=== PATIENT | female | born 1985 | race Caucasian/White ===

== ENCOUNTER 2022-03-21 16:57 | Emergency (ER) | payer OTHER, SELFPAY ==
[2022-03-21 17:01] VITALS: BP 122/74; PULSE 109; RESP 16; TEMP 37.3; O2SAT 99
--- NOTE | 2022-03-21 17:02 | ED.URI ---
HPI - URI/Sore Throat General Chief Complaint: Upper Respiratory Infection Stated Complaint: cold flu ears Time Seen by Provider: 03/21/22 17:02 Source: patient and RN notes reviewed History of Present Illness HPI Narrative: Patient is a 37-year-old female who presents to urgent care with complaints of persistent cough and sinus pressure. Patient states she had the flu 2 weeks ago and does not seem to cap the symptoms. Patient denies any recent fevers. States she has been using Mucinex, sinus meds and Tylenol. No other acute complaints. No acute distress noted. Patient aware of the plan of care. Some parts of this dictation were generated by voice recognition software and may contain typographical and/or grammatical inaccuracies. Related Data Allergies Allergy/AdvReac Type Severity Reaction Status Date / Time ciprofloxacin Allergy Intermediate Hives / Verified 03/21/22 17:13 Red Face NSAIDS (Non-Steroidal AdvReac Unknown Unknown Verified 03/21/22 17:13 Anti-Inflamma Review of Systems Review of Systems: CONSTITUTIONAL: Denies fever, chills, or sweats. EYES: Denies visual changes, redness, or discharge. ENT: Reports of sinus pressure, postnasal drainage, rhinorrhea and bilateral ear pressure CARDIOVASCULAR: Denies chest pain, palpitations, or edema. RESPIRATORY: reports of cough GASTROINTESTINAL: Denies abdominal pain, nausea, vomiting, or diarrhea. GENITOURINARY: Denies dysuria or hematuria. SKIN: Denies rash or itching. MUSCULOSKELETAL: Denies back pain, joint pain, or myalgia. NEUROLOGIC: Denies headache, numbness, or weakness. All other systems reviewed are negative, except as documented in HPI. PMFSH Comments At the time of my signature, I reviewed and agree with the nursing past medical, surgical, social, and family history. There is no relevant family history pertinent to the patient complaint. Exam Narrative: GENERAL: This is a well-nourished, well-developed patient, in no apparent distress. HEAD: normocephalic, atraumatic. EYES: PERRL. Sclera clear/white. Vision is grossly intact. EARS: External ears normal, auditory canals clear and without drainage, mild bilateral eustachian tube dysfunction.TMs normal without perforation. Hearing grossly intact. NOSE: External nose normal with no obvious nasal discharge, nares without redness, no rhinorrhea. THROAT: Mucous membranes moist, posterior pharynx clear. Moderate postnasal drainage NECK: Neck supple CARDIOVASCULAR: Regular rate and rhythm without murmurs, gallops, or rubs. RESPIRATORY: Dry cough noted on exam.Clear to auscultation. Breath sounds equal bilaterally. No wheezes, rales, or rhonchi. SKIN: warm, intact with no suspicious lesions or rash, good texture and turgor. NEURO: awake, alert, and oriented to person, place and time. There were no obvious focal neurologic abnormalities. EXTREMITIES: No clubbing, cyanosis, or edema. Course Course Level of Care: Express Care Visit Vital Signs Vital signs: Vital Signs Temperature 99.1 F 03/21/22 17:01 Pulse Rate 109 H 03/21/22 17:01 Respiratory Rate 16 03/21/22 17:01 Blood Pressure 122/74 03/21/22 17:01 Pulse Oximetry 99 03/21/22 17:01 Oxygen Delivery Room Air 03/21/22 17:01 Temperature 99.1 F 03/21/22 17:01 Pulse Rate 109 H 03/21/22 17:01 Respiratory Rate 16 03/21/22 17:01 Blood Pressure 122/74 03/21/22 17:01 Pulse Oximetry 99 03/21/22 17:01 Oxygen Delivery Room Air 03/21/22 17:01 reviewed MDM - URI/Sore Throat MDM Narrative Medical decision making narrative: advised patient to use the Tessalon Perles as needed for cough. Use the inhaler as needed. Complete the steroid regimen as prescribed. Would recommend Mucinex in conjunction with Benadryl/ Zyrtec/ Claritin and Flonase nasal spray. Increase fluid intake and rest. Use a humidifier at night. Follow-up with your PCP within 2-5 days or for worsening symptoms or failure to improve. Dis
== END 2022-03-21 17:30 | disposition home or self-care (01) ==
PROVIDERS: Emergency Provider Nurse Practitioner Family; PCP Internal Medicine
DX: R05.9 Cough, unspecified (principal); D69.3 Immune thrombocytopenic purpura
CPT/HCPCS: 99203; G0463

== ENCOUNTER 2022-09-08 15:45 | Emergency (ER) | payer OTHER, SELFPAY ==
[2022-09-08 15:51] VITALS: BP 129/84; PULSE 92; RESP 16; TEMP 36.7; O2SAT 100
[2022-09-08 15:54] VITALS: BP 129/84; PULSE 92; RESP 16; TEMP 36.7; O2SAT 100
--- NOTE | 2022-09-08 16:08 | ED.DENTAL ---
HPI - Dental/Oral General Chief complaint: Dental/Oral Stated complaint: Tooth pain Time Seen by Provider: 09/08/22 16:08 Source: patient and RN notes reviewed History of Present Illness HPI Narrative: Patient is a 37-year-old female who presents to urgent care with complaints of dental pain for the last few days. Patient states that she has been taking Tylenol with minimal relief. States that she did call her dentist this morning and was unable to get in. Patient states it has been a very long time since she has followed up for a regular dental appointment. Patient states she is also having some low back discomfort and urinary urgency. States that she does have a history of kidney stones and is currently on her menstrual cycle. Patient denies any fever, nausea or vomiting. No other acute complaints. No acute distress noted. Patient aware of the plan of care. Some parts of this dictation were generated by voice recognition software and may contain typographical and/or grammatical inaccuracies. Related Data Allergies Allergy/AdvReac Type Severity Reaction Status Date / Time ciprofloxacin Allergy Intermediate Hives / Verified 09/08/22 15:53 Red Face NSAIDS (Non-Steroidal AdvReac Unknown Unknown Verified 09/08/22 15:53 Anti-Inflamma Review of Systems Review of Systems: CONSTITUTIONAL: Denies fever, chills, or sweats. EYES: Denies visual changes, redness, or discharge. ENT: Denies rhinorrhea, congestion, sore throat, or otalgia. Reports of left lower dental pain CARDIOVASCULAR: Denies chest pain, palpitations, or edema. RESPIRATORY: Denies cough or dyspnea. GASTROINTESTINAL: Denies abdominal pain, nausea, vomiting, or diarrhea. GENITOURINARY: Reports of urinary urgency and bilateral flank pain SKIN: Denies rash or itching. MUSCULOSKELETAL: Denies back pain, joint pain, or myalgia. NEUROLOGIC: Denies headache, numbness, or weakness. All other systems reviewed are negative, except as documented in HPI. PMFSH Comments At the time of my signature, I reviewed and agree with the nursing past medical, surgical, social, and family history. There is no relevant family history pertinent to the patient complaint. Exam Narrative: GENERAL: This is a well-nourished, well-developed patient, in no apparent distress. HEAD: normocephalic, atraumatic. EYES: PERRL. Sclera clear/white. Vision is grossly intact. EARS: External ears normal NOSE: External nose normal with no obvious nasal discharge, nares without redness, no rhinorrhea. THROAT: Mucous membranes moist, posterior pharynx clear. NECK: Neck supple, mild left tender submandibular lymphadenopathy DENTAL: Multiple carious lesions throughout. Notable gingivitis. Moderate edema and erythema surrounding left lower molars 19 through 17 CARDIOVASCULAR: Regular rate and rhythm without murmurs, gallops, or rubs. RESPIRATORY: Clear to auscultation. Breath sounds equal bilaterally. No wheezes, rales, or rhonchi. GASTROINTESTINAL: Abdomen soft, non-tender, nondistended. SKIN: warm, intact with no suspicious lesions or rash, good texture and turgor. NEURO: awake, alert, and oriented to person, place and time. There were no obvious focal neurologic abnormalities. EXTREMITIES: No clubbing, cyanosis, or edema. BACK: Mild bilateral CVA tenderness Course Course Level of Care: Express Care Visit Vital Signs Vital signs: Vital Signs Temperature 98.0 F 09/08/22 15:51 Pulse Rate 92 09/08/22 15:51 Respiratory Rate 16 09/08/22 15:51 Blood Pressure 129/84 09/08/22 15:51 Pulse Oximetry 100 09/08/22 15:51 Oxygen Delivery Room Air 09/08/22 15:51 Temperature 98.0 F 09/08/22 15:54 Pulse Rate 92 09/08/22 15:54 Respiratory Rate 16 09/08/22 15:54 Blood Pressure 129/84 09/08/22 15:54 Pulse Oximetry 100 09/08/22 15:54 Oxygen Delivery Room Air 09/08/22 15:54 At the time of my signature, I reviewed and agree with the nursing past medical
== END 2022-09-08 16:28 | disposition home or self-care (01) ==
PROVIDERS: Emergency Provider Nurse Practitioner Family
DX: K02.9 Dental caries, unspecified (principal); K04.7 Periapical abscess without sinus
CPT/HCPCS: 81003; 99213; G0463

== ENCOUNTER 2023-04-29 13:25 | Emergency (ER) | payer OTHER, SELFPAY ==
--- NOTE | ~2023-04-29 | XR_ITS ---
XR abdomen/kub 1V 04/29/2023 14:13 INDICATION: Flank pain TECHNIQUE: KUB COMPARISON: None FINDINGS: Bowel gas pattern is normal. Moderate colonic fecal loading. There is no evidence of free a ir, mass, organomegaly, ascites or obstruction. No abnormal calculi are seen. The bones appear inta ct. IMPRESSION: 1: No acute abdominal abnormality identified. Reviewed, dictated and finalized at location B. CAST ANALYST
[2023-04-29 13:30] VITALS: BP 134/74; PULSE 107; RESP 18; TEMP 37.1; O2SAT 100
--- NOTE | 2023-04-29 13:56 | ED.FEMALEGU ---
HPI - Female Genitourinary General Chief complaint: Urogenital-Female Stated complaint: Poss UTI Time Seen by Provider: 04/29/23 13:57 Source: patient Mode of arrival: ambulatory Limitations: no limitations History of Present Illness HPI Narrative: 38 yo F presents with with R sided flank pain radiating around to R side ABD. Also reports urinary frequency. No dysuria. Hx of kidney stones. Deneis fever, N/V. All systems reviewed and negative except as noted above. Related Data Allergies Allergy/AdvReac Type Severity Reaction Status Date / Time ciprofloxacin Allergy Intermediate Hives / Verified 04/29/23 13:49 Red Face NSAIDS (Non-Steroidal AdvReac Unknown Unknown Verified 04/29/23 13:49 Anti-Inflamma Review of Systems Review of Systems: CONSTITUTIONAL: Denies fever, chills, or sweats. EYES: Denies visual changes, redness, or discharge. ENT: Denies rhinorrhea, congestion, sore throat, or otalgia. CARDIOVASCULAR: Denies chest pain, palpitations, or edema. RESPIRATORY: Denies cough or dyspnea. GASTROINTESTINAL: Denies abdominal pain, nausea, vomiting, or diarrhea. GENITOURINARY: Denies dysuria or hematuria. Reports right flank pain\, urinary frequency. SKIN: Denies rash or itching. MUSCULOSKELETAL: Reports right sided back pain. Denies joint pain, or myalgia. NEUROLOGIC: Denies headache, numbness, or weakness. PSYCHIATRIC: Denies anxiety or depression. All other systems reviewed are negative, except as documented in HPI. PMFSH Comments At time of signature, agree with nursing past medical, surgical, social and family history. There is no relevant family history pertinent to the presenting complaint. Exam Narrative: GENERAL: This is a well-nourished, well-developed patient, in no apparent distress. HEAD: normocephalic, atraumatic. EYES: PERRL. Sclera clear/white. Vision is grossly intact. EARS: External ears normal NOSE: External nose normal NECK: Neck supple, non-tender without lymphadenopathy, masses or thyromegaly. CARDIOVASCULAR: Regular rate and rhythm without murmurs, gallops, or rubs. RESPIRATORY: Clear to auscultation. Breath sounds equal bilaterally. No wheezes, rales, or rhonchi. GASTROINTESTINAL: Abdomen soft, non-tender, nondistended. Bowel sounds are hypo active. No hepato-splenomegaly, or palpable masses. No guarding. SKIN: warm, Dry, intact with no suspicious lesions or rash, good texture and turgor. NEURO: awake, alert, and oriented to person, place and time. There were no obvious focal neurologic abnormalities. EXTREMITIES: No joint tenderness, effusion, or edema noted. BACK: Nontender without deformity. No CVA tenderness. Course Course Level of Care: Express Care Visit Vital Signs Vital signs: Vital Signs Temperature 37.1 C 04/29/23 13:30 Pulse Rate 107 H 04/29/23 13:30 Respiratory Rate 18 04/29/23 13:30 Blood Pressure 134/74 04/29/23 13:30 Pulse Oximetry 100 04/29/23 13:30 Oxygen Delivery Room Air 04/29/23 13:30 Temperature 37.1 C 04/29/23 13:30 Pulse Rate 107 H 04/29/23 13:30 Respiratory Rate 18 04/29/23 13:30 Blood Pressure 134/74 04/29/23 13:30 Pulse Oximetry 100 04/29/23 13:30 Oxygen Delivery Room Air 04/29/23 13:30 Reviewed MDM - Female Genitourinary MDM Narrative Medical decision making narrative: Discussed x-ray results with patient. Explain to patient that KUB is not the best imaging to evaluate for kidney stones. Recommend she follow-up with her primary care physician to request an outpatient CT scan if pain continues. Recommend that she go to the ER for any worsening of symptoms. Prescribed MiraLax to treat constipation. Patient is aware of diagnosis, understands and agrees to treatment plan. Anticipatory guidance given. Patient agrees to follow-up as directed and is aware of reasons to seek care at the emergency department. Portions of this record may have been created with voice recognition software [employer]
== END 2023-04-29 14:35 | disposition home or self-care (01) ==
PROVIDERS: Emergency Provider Nurse Practitioner Family; PCP Internal Medicine
DX: K59.00 Constipation, unspecified (principal)
CPT/HCPCS: 74018; 81003; 99213; G0463

== ENCOUNTER 2025-01-14 13:51 | Emergency (ER) | payer OTHER, SELFPAY ==
--- OUTSIDE RECORDS SUMMARY | 2025-01-14 13:53 | XMS_ITS | Encounter Summary ---
Author Organization [facility] [employer] [facility] Address [address] [place] [address] Phone Care Team Providers Care Out Patient Therapist Name Role Phone Andrea Handy MD Primary Care Provider [phone] Encounter Details Date Type Department Care Team (Late st Contact Info) Description 07/30/2020 Telephone [facility] Medicine Psychiatry [address] [place] [address] Shelley Portillo Social History Tobacco Use Types Packs/Day Years Used Date Smoking Tobacco: Every Day Cigarettes 0.3 26.8 Started: 1998 Smokeless Tobacco: Never Alcohol Use Standard Drinks/Week Comments Not Currently 0 (1 standard drink = 0.6 oz pur e alcohol) Comments Yes Sex and Gender Information Value Date Recorded Sex Assigned at Not on file 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
--- OUTSIDE RECORDS SUMMARY | 2025-01-14 13:53 | XMS_ITS | Clinical Summary ---
Author Organization [facility] Address [address] [place] [address] Care Team Providers Care Cyber Forensic Specialist Name Role Phone Maicol Shin MD Primary Care Provider Source Comments [facility],non-[facility] Affiliates and Associated Physician Practices is amultiple site organization consisting of ambulatory clinics and hospital sitesin [place], [place], [place] and [place]. This disclosure is being madepursuant to the Care Everywhere program and may not contain all information available regarding this patient. 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 Gender Identity Not on file Sexual Orientation Not on file Plan of Treatment Health Maintenance Due Date Last Done Comments LIPID TESTING 1984 MAMMOGRAM 1984 HIV SCREENING 02/27/1999 HEPATITIS C SCREENING 02/23/2002 DTAP/TDAP/TD VACCINES (1 - Tdap) 02/27/2003 HEPATITIS B VACCINE (1 of 3 - 19+ 3-dose series) 02/27/2003 HPV VACCINE (1 - 3-dose SCDM series) 02/27/2011 DEPRESSION SCREENING 04/06/2024 COVID-19 VACCINE ( - 2023-2 5 season) 2024 INFLUENZA VACCINE (#1) 2024 ZOSTER VACCINE (1 of 2) 02/27/2034 HIB VACCINE Aged Out No longer eligi ble based on patient's age to complete this topic MENINGOCOCCAL (Group B) VACC INE SHARED DECISION-MAKING Aged Out No longer eligibl e based on patient's age to complete this topic MENINGOCOCCAL GROUPS A/C/Y/W VACCINE Aged Out No longer eligible b ased on patient's age to complete this topic PNEUMOCOCCAL VACCINE Aged Out No long er eligible based on patient's age to complete this topic Insurance [facility] Care Teams Cyber Forensic Specialist Relationship Specialty Start Date End Date Maicol Shin MD [address] [place] [phone] PCP - General 10/26/17
--- OUTSIDE RECORDS SUMMARY | 2025-01-14 13:53 | XMS_ITS | Clinical Summary ---
Author Organization [facility] Address [address] [place] [phone] Phone Care Team Providers Care Magazine Repairer Name Role Phone Unavailable Primary Care Provider Unavailabl e Allergies No known active allergies Medications acetaminophen-ca ffeine-butalbita l (FIORICET) 325-40-50 mg tablet Take 1 Tablet by mouth. 05/11/2017 Active vit-iron fumarate-fa (MAXIMO ) 28 mg iron- 800 mcg Tablet Take 1 Tablet by mouth daily. Active predniSONE (DELTASONE) 5 mg tabletIndication s:Thrombocytopen ia affecting Take 1 Tablet (5 mg) by mouth daily 4 tabs po qday for 3 days, 2 tabs po for 2 days then 1 tab po qday. 40 Tablet 1 12/03/2017 Active Active Problems Problem Noted Date Diagnosed Date High-risk , third trimester 11/26/2017 Thrombocytopenia affecting 10/08/2017 Tobacco use in , second trimester 10/08 Resolved Problems Problem Noted Date Diagnosed Date Resolved Date Supervision of high risk pre gnancy in second trimester 10/08/2017 11/26/2017 Family History Medical History Relation Name Comments Diabetes Father Healthy Mother Relation Name Status Comments Father Mother Social History Tobacco Use Types Packs/Day Years Used Date Smoking Tobacco: Every Day Cigarettes 0.5 15 Smokeless Tobacco: Never Alcohol Use Standard Drinks/Week Comments No 0 (1 standard drink = 0.6 oz pur e alcohol) Comments No Sex and Gender Information Value Date Recorded Sex Assigned at Not on file Legal Sex Female 1:27 PM CDT Gender Identity Not on file Sexual Orientation Not on file Last Filed Vital Signs Vital Sign Reading Time Taken Comments Blood Pressure 114/74 12/03/2017 9:47 AM CDT Pulse - - Temperature - - Respiratory Rate - - Oxygen Saturation - - Inhaled Oxygen Concentration - - Weight 65.8 kg (145 lb) 12/03/2017 9:47 AM CDT Height - - Body Mass Index - - Plan of Treatment Health Maintenance Due Date Last Done Comments HEPATITIS B VACCINES (1 of 3 - 19+ 3-dose series) 02/05 HPV/Cotest (21-29) 02/27/2005 HPV VACCINES (1 - 3-dose SCDM series) 02/27/2011 CERVICAL CANCER SCREENING 02/27/2014 HPV/Cotest (30-65) 02/27/2014 PAP SMEAR 02/27/2014 BREAST CANCER SCREENING 2024 INFLUENZA VACCINE (#1) 2024 DTAP/TDAP/TD VACCINES (2 - Td or Tdap) 12/25/2026 Insurance [employer] [facility] Address: [address] [address]
--- OUTSIDE RECORDS SUMMARY | 2025-01-14 13:53 | XMS_ITS | Encounter Summary ---
Author Organization [facility] Address [address] [place] [place] [address] Phone Care Team Providers Care Flight Test Supervisor Name Role Phone Andrea Handy MD Primary Care Provider [phone] Encounter Details Date Type Department Care Team (Late st Contact Info) Description 10/09/2022 Telephone [facility] Oncology Services [address] [place] [address] Vera Horton Mary, PAC [address] [place], [place] [id number] Social History Tobacco Use Types Packs/Day Years Used Date Smoking Tobacco: Every Day Cigarettes 0.5 20 Smokeless Tobacco: Never Alcohol Use Standard Drinks/Week Comments Yes 0 (1 standard drink = 0.6 oz pur e alcohol) Sexually Active Control Partners Comments Yes Male Comments No Sex and Gender Information Value Date Recorded Sex Assigned at Not on file Legal Sex Female 3:13 AM CREDIT SUPPORT SPECIALIST Gender Identity Not on file Sexual Orientation Not on file COVID-19 Exposure Response Date Recorded In the last 10 days, have yo u been in contact with someone who was confirmed or suspected to have Coronavirus/COVID-19? No / Unsure 10/06/2022 9:44 AM CDT documented as of this encounter Miscellaneous Notes * Telephone Encounter - Sheba Perez - 10/09/2022 11:58 AM CDT Recent lab results faxed per patient request to [facility] @ [phone]. documented in this encounter Plan of Treatment Upcoming Encounters Date Type Department Care Team (Late st Contact Info) Description 01/26/2025 8:40 AM CDT Office Visit [facility] - Cancer Center Oncology Services [address] [place] [address] Vera Horton Mary, PAC [address] [place] [address] Discharge Disposition: Discharged to home or Selfcare documented as of this encounter Visit Diagnoses Not on filedocumented in this encounter Care Teams Flight Test Supervisor Relationship Specialty Start Date End Date Andrea Handy MD [address] [place] [address] PCP - General Internal Medicine 12/31/16 documented as of this encounter
--- OUTSIDE RECORDS SUMMARY | 2025-01-14 13:53 | XMS_ITS | Clinical Summary ---
Author Organization [facility] Address [address] [place] [address] Phone Care Team Providers Care Before And After School Daycare Worker Name Role Phone Andrea Handy MD Primary Care Provider [phone] Allergies Active Allergy Reactions Criticality Noted Date Comments Cephalexin Hives 02/02/2017 Nsaids Other (see Comments) 09/18/2022 Thrombycytopenia Medications fluticasone (FLONASE) 50 MCG/ACT Suspension 01/29/2017 Active Calcium Carbonate Antacid (TUMS PO) Take by mouth. Active VITAMIN D PO Take by mouth daily. Active diphenhydrAMINE- PSE-APAP (EQ ALLERGY/SINUS HEADACHE PO) Take by mouth. Active Active Problems Problem Noted Date Diagnosed Date Chronic ITP (idiopathic thrombocytopenia) 2018 Thrombocytopenia 10/09/2017 Tobacco abuse 10/09/2017 Resolved Problems Problem Noted Date Diagnosed Date Resolved Date 35 weeks gestation of 12/04/2017 09/19/2019 28 weeks gestation of 10/09/2017 12/04/2017 Family History Medical History Relation Name Comments Hypertension Father Hypertension Mother Clotting Disorder Paternal Aunt Diabetes Paternal Grandfather Heart Attack Paternal Grandfather Relation Name Status Comments Father Mother Paternal Aunt Paternal Grandfather Social History Tobacco Use Types Packs/Day Years Used Date Smoking Tobacco: Every Day Cigarettes 0.5 20 Smokeless Tobacco: Never Tobacco Cessation:Ready to Q uit: Yes; Counseling Given: Yes Alcohol Use Standard Drinks/Week Comments Yes 0 (1 standard drink = 0.6 oz pur e alcohol) Sexually Active Control Partners Comments Yes Male Comments No Sex and Gender Information Value Date Recorded Sex Assigned at Not on file Legal Sex Female 3:13 AM HEATING AND VENTILATION ENGINEER Gender Identity Not on file Sexual Orientation Not on file Last Filed Vital Signs Vital Sign Reading Time Taken Comments Blood Pressure 125/74 05/09/2024 11:34 AM HEATING AND VENTILATION ENGINEER Pulse 95 05/09/2024 11:34 AM HEATING AND VENTILATION ENGINEER Temperature 36.6 C (97.8 F) 05/09/2024 9:02 AM HEATING AND VENTILATION ENGINEER Respiratory Rate 18 05/09/2024 11:34 AM HEATING AND VENTILATION ENGINEER Oxygen Saturation 100% 05/09/2024 11:34 AM HEATING AND VENTILATION ENGINEER Inhaled Oxygen Concentration - - Weight 65.4 kg (144 lb 2.9 oz) 05/09/2024 9:02 A M HEATING AND VENTILATION ENGINEER Height 171.5 cm (5' 7.5) 05/09/2024 9:02 AM HEATING AND VENTILATION ENGINEER Body Mass Index 22.25 05/09/2024 9:02 AM HEATING AND VENTILATION ENGINEER Plan of Treatment Upcoming Encounters Date Type Department Care Team (Late st Contact Info) Description 01/26/2025 8:40 AM CDT Office Visit [facility] On[facility] [address] [place] [address] Vera Horton Mary, PAC [address] [place] [address] Discharge Disposition: Discharged to home or Selfcare Health Maintenance Due Date Last Done Comments Mammogram 1984 Hepatitis B Immunization (1 of 3 - 19+ 3-dose series) 02/27/2003 Pneumococcal Immunization Combined (1 of 2 - PCV) 02/27/2003 Human Papillomavirus (HPV) Immunization (1 - 3-dose SCDM series) 02/27/2011 HPV/Cotest 02/27/2014 Cervical Cancer Screening (CCS) 05/11/2020 Pap Smear 05/11/2020 05/11/2017 Discussion re Starting/Frequency of Mammograms 2024 Influenza Immunization (#1) 2024 SARS-COV-2 Immunization ( - 2023- season) 2024 Respiratory Syncytial Virus (RSV) Immunization (Adult) (1 - 1-dose 75+ series) 02/27/2059 Hepatitis C Virus (HCV) Screening Completed 10/21/2017, 05/11/2017 DTaP/Tdap/Td Immunization Discontinued 2019, 12/25/2016, 10/26/1992 TdaP Immunization Completed 12/06/2019, 12/25/2016 Meningococcal Immunization (ACWY) Aged Out No longer eligible based on patient's age to complete this topic Rotavirus Immunization Aged Out No lo nger eligible based on patient's age to complete this topic Procedures Procedure Name Priority Date/Time Associated Diagnosis Comments HEPATITIS C ANTIBODY Routine 10/21/2017 11:20 AM CDT Thrombocytopenia (HCC) 28 weeks gestation of PATHOLOGY CYTOLOGY OPERATIONS VICE PRESIDENT Routine 05/11/2017 from Last 3 Months or Most Recently Relevant to Health Maintenance Results * HEPATITIS C ANTIBODY (10/21/2017 11:20 AM CDT) hepatitis C antibody 0.06 <1 S/CO 10/22/2017 3:12 PM CDT [facility] Comment: Signal/Cutoff ratio < 0.79 is Nondetected Signal/Cutoff ratio 0.80-0.99 is Grayzone Signal/Cutoff ratio > 0.99 is Detected Supplemental assays are recommended if signal/cutoff ratio is >/=1.00. Signal/cutoff ratio result >/= 5.00 is 97% predictive of positivity for recombinant immunoblot assay (RIBA) and will be reported to the [place] Department of Public Health as required. Blood specimen (specimen) Venipuncture / Unknown 10/21/2017 11:20 AM CDT 10/21/2017 4:26 PM CDT us Nick Ulloa MD CHEMISTRY ORDERABLES Final Resul t [facility] [address] [place] [address], * PATHOLOGY CYTOLOGY OPERATIONS VICE PRESIDENT (05/11/2017) Specimen of unknown material (specimen) us Not On File Provider PATHOLOGY/CYTOLOGY ORDERABL ES Final Result from Last 3 Months or Most Recently Relevant to Health Maintenance Insurance MEDICAID [place] Advance Directives * Full Code (Latest Code Status on File) Date Activated Date Inactivated Comments 11/17/2017 3:46 PM 11/17/2017 9:07 PM CPR-Full Vince atment: FULL ARREST: Attempt Resuscitation/CPR wit intubation and mechanical ventilation. PRE-ARREST: Use entire range of life support measures to stabilize the patient. Care Teams Before And After School Daycare Worker Relationship Specialty Start Date End Date Andrea Handy MD [address] [place] [address] PCP - General Internal Medicine 12/31/16
--- OUTSIDE RECORDS SUMMARY | 2025-01-14 13:54 | XMS_ITS | Encounter Summary ---
Author Organization [facility] Address [address] [place] [address] Care Team Providers Care Night Warehouse Selector Name Role Phone Maicol Shin MD Primary Care Provider [phone] Encounter Details Date Type Department Care Team (Late st Contact Info) Description 11/04/2018 Lab Requisition [facility] [address] [place] [address] Ev Irwin MD [address] [place] [address] Thrombocytopenia Social History Tobacco Use Types Packs/Day Years Used Date Smoking Tobacco: Never Assessed Comments Unknown Sex and Gender Information Value Date Recorded Sex Assigned at Not on file Legal Sex Female 9:51 AM GRAPHIC USER INTERFACE DESIGNER Gender Identity Not on file Sexual Orientation Not on file documented as of this encounter Plan of Treatment Not on file documented as of this encounter Procedures Procedure Name Priority Date/Time Associated Diagnosis Comments FLOW CYTOMETRY BONE MARROW Routine 11/04/2018 9:34 AM CDT Thrombocytopenia documented in this encounter Results * FLOW CYTOMETRY BONE MARROW (11/04/2018 9:34 AM CDT) Case Report Flow Cytometry Case: [id number] Authorizing Provider: Ev Irwin MD Collected: 11/04/2018 09:34 AM Pathologist: Pippa Crisostomo MD Received: 11/04/2018 03:12 PM Specimen: Bone Marrow 11/05/2018 8:50 AM [facility] Final Diagnosis Bone marrow, flow cytometric immunophenotypic analysis: - Paucicellular specimen with no evidence of non-Hodgkin lymphoma or high grade myeloid neoplasm. - See interpretation. 11/05/2018 8:50 AM [facility] at 0850 CDT Flow Cytometry Interpretation The bone marrow specimen is paucicellular and has a viability of 100%. The lymphocyte, dim CD45, monocyte, and granulocyte rea are normal in relative proportion. Within the lymphocyte region, there is no monoclonal B-cell population identified (kappa:lambda ratio is 1.5:1). There is no expanded T-cell population seen. Within the dim CD45 region, there is no increase in blasts (0.3% of all events). A bone marrow aspirate smear prepared from the flow cytometry specimen is reviewed for quality engineering manager purposes. In summary, the bone marrow specimen shows no evidence of a non-Hodgkin lymphoma or high grade myeloid neoplasm. Correlation with additional clinical information and the concurrent bone marrow biopsy specimen ([id number]) is required. KR 11/05/2018 8:50 AM [facility] Flow Cytometry Results Differential Result Comment Flow Cell Count /uL 5700 Total Viability % 100.0 Lymphocytes % 28 Dim CD45 Region % 2 Monocytes % 12 Granulocytes % 57 11/05/2018 8:50 AM [facility] Reason for test Thrombocytopenia 287.5 11/05/2018 8:50 AM [facility] Client Specimen ID # [id number] 11/05/2018 8:50 AM [facility] Number of markers 10 were performed. A Flow CD10 A Flow CD13 A Flow CD20 A Flow CD5 A Flow CD19 A Flow CD33 A Flow CD34 A Flow CD45 A [place]+CD19+ A Lambda+CD19+ 11/05/2018 8:50 AM [facility] Disclaimer Test performed at [facility], [address] [place] [address], [id number]. *The established laboratory minimum viability is 70%. Values below the minimum may result in the failure to find an abnormal population of cells. This test was developed and its performance characteristics determined by the Flow Cytometry Laboratory. It has not been cleared by the [place] Food and Drug Administration (FDA). The FDA has determined that such clearance or approval is not necessary. This test is used for clinical purposes. It should not be regarded as investigational or for research. This laboratory is regulated under the Clinical Laboratory Improvement Amendments of 1998 (CLIA) as a qualified to perform high complexity clinical testing. 11/05/2018 8:50 AM CDT [facility] Embedded Images 8:50 AM CDT [facility] Pathology/Cytolo gy BONE MARROW SPECIMEN / Unknown 11/04/2018 9:34 AM CDT 11/04/2018 3:12 PM CDT Ev Irwin MD LAB - PATHOLOGY/CYTOLOGY ORDERA BLES Final Result Performing Organization Address City/State/[facility] Co de Phone Number [facility] [address] [phone] documented in this encounter Visit Diagnoses Diagnosis Thrombocytopenia Thrombocytopenia, unspecified documented in this encounter Care Teams Night Warehouse Selector Relationship Specialty Start Date End Date Maicol Shin MD [address] [place] [address] PCP - General 10/26/17 documented as of this encounter
--- OUTSIDE RECORDS SUMMARY | 2025-01-14 13:54 | XMS_ITS | Encounter Summary ---
Author Organization [facility] Address [address] [place] [address] Care Team Providers Care Radiology Scheduler Name Role Phone Maicol Shin MD Primary Care Provider [phone] Encounter Details Date Type Department Care Team (Late st Contact Info) Description 11/05/2018 Lab Requisition [facility] Care Pathology Lab [address] [place] [address] Ev Irwin MD [address] [place] [address] Social History Tobacco Use Types Packs/Day Years Used Date Smoking Tobacco: Never Assessed Comments Unknown Sex and Gender Information Value Date Recorded Sex Assigned at Not on file Legal Sex Female 9:51 AM INFORMATION SECURITY ANALYST Gender Identity Not on file Sexual Orientation Not on file documented as of this encounter Plan of Treatment Not on file documented as of this encounter Procedures Procedure Name Priority Date/Time Associated Diagnosis Comments BONE MARROW BIOPSY (STL) Routine 11/04/2018 10:00 AM CDT documented in this encounter Results * BONE MARROW BIOPSY (STL) (11/04/2018 10:00 AM CDT) Case Report Bone Marrow Patholog y Report Case: [id number] Authorizing Provider: Ev Irwin MD Collected: 11/04/2018 10:00 AM Pathologist: Pippa Crisostomo MD Received: 11/05/2018 02:00 PM Specimens: A) - Bone Marrow Core, [id number] B) - Bone Marrow Clot, [id number] C) - Blood Peripheral, [id number] D) - Bone Marrow Aspirate, [id number] 11/05/2018 3:06 PM [facility] Final Diagnosis Bone marrow, aspirate, clot section, and core biopsy: - Normocellular marrow with maturing trilineage hematopoiesis and mild megakaryocytic hyperplasia. - No evidence of lymphoma or high grade myeloid neoplasm. - See microscopic description. Peripheral blood smear: - Thrombocytopenia. - See microscopic description. 11/05/2018 3:06 PM [facility] at 1506 CDT AP Comment In summary, the bone marrow is normocellular for age with maturing trilineage hematopoiesis. Megakaryocytes are slightly increased in number and show focal clustering. This is often observed as a reactive process to peripheral destruction or loss of platelets, such as in ITP. Correlation with clinical, laboratory, and cytogenetic/molecular results is required. KR 11/05/2018 3:06 PM [facility] Peripheral Smear Description CBC Data: WBC - 5.62, Hgb - 12.6, MCV - 88.8, MCHC - 31.7, and Platelets - 88. Manual Differential Count (100 cells): 50% neutrophils, 41% lymphocytes, 6% monocytes, and 3% eosinophils. Leukocyte number: normal. Granulocyte morphology: normal. Lymphocyte morphology: normal. Erythrocyte number: normal. Erythrocyte morphology: normochromic/normocyt ic. Anisopoikilocytosis: not significant. Polychromasia: not significant. Platelet number: decreased. Platelet morphology: normal. 11/05/2018 3:06 PM [facility] Bone Marrow Aspirate The aspirate smears and touch imprint are paucicellular and hemodilute without spicules. A differential count is not performed. Storage iron (by special stain): decreased. Smear is paucicellular, limiting interpretation. Control is appropriately reactive. Sideroblastic iron (by special stain): decreased. 11/05/2018 3:06 PM [facility] Bone Marrow Core Biopsy and Clot Section Description Specimen quality: The decalcified bone marrow core biopsy is adequate for evaluation. Cellularity: Normocellular, estimated at 70%. Trilineage Hematopoiesis: Present. Myeloid to Erythroid ratio: normal. Myeloid maturation and localization: normal. Erythroid maturation and localization: normal. Megakaryocyte number: Mildly increased. Megakaryocyte distribution: small, loose clusters. Lymphoid aggregates: Absent. Core biopsy iron (by special stain): Decreased. Core biopsy reticulin fibrosis (by special stain): No significant fibrosis identified (MF-0). Clot section marrow particles: Single particle. Clot section morphology: similar to core biopsy. Clot section iron (by special stain): Focal. 11/05/2018 3:06 PM [facility] Flow Cytometry Summary Concurrent flow cytometry ([id number]) shows a paucicellular specimen with no evidence of non-Hodgkin lymphoma or high grade myeloid neoplasm. 11/05/2018 3:06 PM [facility] Clinical History 33 year old woman with thrombocytopenia. 11/05/2018 3:06 PM [facility] Materials Received Received are 20 slides and 2 blocks labeled as [id number] along with the outside pathology report. The materials originate from [facility], [address] [place] [address]. All materials are returned to the referring institution, along with a copy of our final report. 11/05/2018 3:06 PM [facility] Disclaimer The performance characteristics of all immunohistochemical and indirect immunofluorescence stains (if any) cited in this report were determined by the Histopathology Laboratory of [facility]. Some of these tests were developed by our own laboratory and have not been cleared or approved by the US Food and Drug Administration. The FDA does not require this test to go through premarket FDA review. These tests are used for clinical purposes. They should not be regarded as investigational or for research. This laboratory is certified under the Clinical Laboratory Improvement Amendments (CLIA) as qualified to perform high complexity clinical laboratory testing. This case has been personally reviewed and interpreted by the attending (teaching) pathologist. The interpretation of this case is performed [facility], [address] [place] [id number]. 11/05/2018 3:06 PM [facility] Embedded Images 11/05/2018 3:06 PM [facility] Pathology/Cytology SPECIMEN FROM BONE MARROW OBTAINED BY ASPIRATION / Unknown 11/04/2018 10:00 AM CDT 11/05/2018 2:00 PM CDT Miscellaneous samples (specimen) BONE MARROW CLOT SPECIMEN / Unknown 11/04/2018 10:00 AM CDT 11/05/2018 2:00 PM CDT Miscellaneous samples (specimen) PERIPHERAL BLOOD / Unknown 11/04/2018 10:00 AM CDT 11/05/2018 2:00 PM CDT Miscellaneous samples (specimen) SPECIMEN FROM BONE MARROW OBTAINED BY ASPIRATION / Unknown 11/04/2018 10:00 AM CDT 11/05/2018 2:00 PM CDT Ev Irwin MD LAB - PATHOLOGY/CYTOLOGY ORDERA BLES Final Result Performing Organization Address [facility] Co de Phone Number [facility] [address] [phone] documented in this encounter Visit Diagnoses Not on filedocumented in this encounter Care Teams Radiology Scheduler Relationship Specialty Start Date End Date Maicol Shin MD [address] [place] [address] PCP - General 10/26/17 documented as of this encounter
--- OUTSIDE RECORDS SUMMARY | 2025-01-14 13:54 | XMS_ITS | Clinical Summary ---
Author Organization [facility] [address] [employer] Address [address] [place] [address] Phone Care Team Providers Care Linoleum Tile Floor Layer Name Role Phone Andrea Handy MD Primary Care Provider Allergies Active Allergy Reactions Criticality Noted Date Comments Cephalexin Hives Medium 02/02/2017 Nsaids (Non-Steroidal Anti-Inflammatory Drug) Other (See comments) Low 09/18/2022 Thrombycytopenia Medications acetaminophen (TYLENOL) 325 mg tabletIndicatio ns:Fever,Pain Take 2 tablets (650 mg total) by mouth every 6 (six) hours as needed for pain 120 tablet 1 1 Active Additional Information Patient not taking.Reported on 12/01/2024 fluticasone propionate (FLONASE) 50 mcg/actuation nasal sprayIndication s:Allergic Rhinitis Administer 2 sprays into each nostril daily 1 Inhaler 1 1 Active medroxyPROGESTE Lyndon (PROVERA) 10 mg tablet Take 1 tablet by mouth 3 times daily for 3 days, then take 1 tablet 2 times daily for 2 days, then take 1 tablet daily for 7 days. 20 tablet 5 Active Additional Information Patient not taking.Reported on 12/01/2024 Active Problems Problem Noted Date Diagnosed Date Smoker 06/24/2019 Overview (07/02/2020): 1/2 ppd to 1/4 ppd in . Cessation reviewed, especially as modifiable risk factor for PTB and IUGR. Previously counseled Resolved Problems Problem Noted Date Diagnosed Date Resolved Date Uterine prolapse 08/20/2020 09/20/2020 care following vaginal delivery 08/11/2020 11/13/2020 Overview (08/13/2020): # ID: Afebrile. No signs/symptoms of infection. #COVID-19: Negative # Heme: Thrombocytopenia: H/o ITP. Plts 109 prior to delivery. S/p s/p prednisone 65 x2 (08/05-08/06) -> dexamethasone 40 mg daily x 4 days. EBL: 150 Calderon, Onegirlheather [] 0 Calderon, Twoboyheather [] 0 mL. No symptoms acute blood loss anemia. # CV/Pulm: Vital signs stable, within normal limits. #Tobacco use: Ordered for nicotine patches # GI/: Tolerating PO. Voiding spontaneously. # Pain: Controlled with above regimen. Added flexeril and oxycodone. Patient declines ibuprofen due to h/o ITP. # Post DVT prophylaxis: The patient has the following MAJOR risk factors none and the following MINOR risk factors age >/= 35 and multiple gestation . enoxaparin 40 mg daily ordered for VTE prophylaxis. # MOC: Desires interval BTL, desires DMPA as a bridge. # MOF: Both formula and # Disposition: Follow up task not sent. Desires discharge home today. Poor growth affecting management of mother in second trimester 06/11/2020 09/20/2020 Overview (07/02/2020): Early onset IUGR of twin 1 diagnosed at 18w2d anatomy scan Previously counseled, patient adamantly declines invasive testing For q3 week growth US. EFW 9% today with normal Dopplers. Today we discussed at length UA Dopplers for prediction of stillbirth. At this time Twin A is not a viable GA or weight therefore I do NOT recommend weekly Dopplers to start. At her next growth in 3 weeks, we reviewed that Twin A may be a viable weight. Thus, fetus would potentially benefit from delivery to avoid an intrauterine demise, which would be reason to start UA Dopplers. However, this would necessitate delivery of Twin B as well - and at that point of 24/25 weeks, would come with risks of extreme prematurity. Options would be to start UA Dopplers to avoid stillbirth with delivery, with risk of very early delivery to Twin B; or, defer Dopplers for another 3 weeks until repeat growth at 27-28 weeks, at which prognosis for Twin B would greatly be improved. Patient demonstrated understanding of these options and will discuss with her family and what her decisions would be. - continue q3 wk growth - UA Doppler to be discussed at next visit - surveillance to start at 28 wks Short interval between pregn ancies affecting in first trimester, antepartum 05/02/2020 09/20/2020 Overview (07/02/2020): Delivered at 33 weeks for PPROM and NRFHS by delivery in December 2019. LMP January 2020, now with twins. Risks of PTB and IUGR previously reviewed. Supervision of high-risk pre gnancy, unspecified trimester 04/25/2020 09/20/2020 Overview (07/02/2020): RTC 3 weeks with repeat growth and UA Doppler of Twin A. Pending viable weight, will make plan regarding whether to initiate weekly Dopplers of Twin A or defer for another 3 weeks to 27-28 weeks, to avoid extreme delivery of normally grown twin. [x] Co-management vs. [] Full [facility] Care; [] Red Team [] Blue Team Referring Provider: Daisy Arshad [phone] [] or Medicare Insurance [x] Dating Criteria: LMP 02/04/20 OMARI 11/10/20 [x] Labs: Rh [O+], Ab [negative], Rubella [immune], HIV [non-reactive], HepBSAg [non-reactive], RPR [non-reactive], GC/CT [negative/negative] [x] Genetic Screening: S/p normal NIPT, declines invasive testnig [x] CBC/Hgb 14.1/43.6/plt 118 [x] UCx: 04/09/20 no growth [x] Pap: 04/09/20 NILM; HPV negative [x] LD ASA (if indicated) starting at 12 weeks: [] PNBHS referral (if indicated) 2nd Tri Labs: [x] Anatomy ultrasound: complete x2 [] CBC/1hr gtt at 24-28wks: [] Flu Shot (Dec-Mar): [] Tdap (27-36wks): 3rd Tri Labs: [] CBC/HIV/RPR: [] GBS: [] COVID testing: Counselling [] MOD: [] Place of delivery: [] MOC: [] Method of feeding: [] Tax Services Manager: [] PP Depression Discussed: Dichorionic diamniotic twin , antepartum 03/26/2020 09/20/2020 Overview (07/02/2020): Previously counseled Plan: [x] specialized anatomy- complete x2, early onset IUGR of Twin1 - Serial growths from 24 weeks, testing from 32 weeks and delivery by 38 weeks- pending growth scans - Mode of delivery to be determined by presentation at delivery, gestational age, sizes and provider experience with breech extraction. Previous delivery a ffecting 12/07/2019 09/20/2020 Overview (07/02/2020): H/o 2 SVDs and then a for NRFHS at 33 weeks with PROM calculator 70% chance of success Previously counseled [] MOD to be discussed pending weights and final position of twins Antepartum multigravida of a dvanced maternal age 0306/24/2019 09/20/2020 Overview (07/02/2020): Previously counseled NIPT is normal, male and female History of delivery 06/24/2019 09/20/2020 Overview (07/02/2020): 2018 - SROM at 36w3d. 2019 - SROM at 33w5d. Previously counseled Declines 17 OHP PTL precautions reviewed Thrombocytopenia affecting p regnancy (CMS/HCC) 10/12/2017 11/13/2020 Overview (07/02/2020): H/o chronic ITP. She states her platelets have gotten to 70-80,000 at their lowest; they were 88,000 for her prior delivery. Followed by aurelio/onc, Dr. Ulloa S/p normal bone marrow biopsy 2019, which was normal Plan: [] CBC q trimester with addition checks at 34-35 weeks in preparation for delivery [] An anesthesia consultation in the third trimester Left ovarian cyst 08/24/2017 06/24/2019 Overview (09/21/2017): 5.9 cm, simple on scan 05/23. Encounters Date Type Department Care Team Description 12/08/2024 Results Follow-Up [facility] [address] [place] [address] Daisy Arshad MD Pap and High Risk HPV and Genotyping (Cytology Component) 12/01/2024 11:28 AM CDT - 12/01/2024 11:59 PM CDT Hospital Encounter [facility] [address] [place] [address] Screening for malignant neoplasm of the cervix Discharge Disposition: Discharge to home or self care 12/01/2024 9:30 AM CDT Office Visit [facility] [address] [place] [address] Daisy Arshad MD Encounter for gynecological examination without abnormal finding (Primary Dx); Screening for malignant neoplasm of the cervix; Encounter for general counseling and advice on contraceptive management 12/01/2024 8:40 AM CDT Ancillary Procedure [facility] [address] [place] [address] Encounter for screening mammogram for breast cancer 12/01/2024 Orders Only [facility] [address] [place] [address] Daisy Arshad MD Screening mammogram, encounter for (Primary Dx) 12/01/2024 Orders Only [facility] [address] [place] [address] Daisy Arshad MD from Last 3 Months Immunizations Immunization Administration Dates Next Due MMR 10/26/1992 Polio, Unspecified 10/26/1992 Td, adsorbed 10/26/1992 Tdap 12/06/2019,12/25/2016 Surgical History Surgery Date Site/Laterality Comments TONSILLECTOMY 04/06/1990 - 04/05/1991 CYSTOSCOPY 04/06/2011 - 04/05/2012 nephrolithiasis FACIAL SURGERY 04/06/2001 - 04/05/2002 eyelid surgery SECTION 04/06/2019 - 04/05/2020 Medical History Medical History Date Comments Asthma Kidney stone 2011 Family History Medical History Relation Name Comments Diabetes Father Hypertension Father Hypertension Mother Hemophilia Mother's Sister Diabetes Paternal Grandfather Heart attack Paternal Grandfather Relation Name Status Comments Father Mother Mother's Sister Paternal Grandfather Social History Tobacco Use Types Packs/Day Years Used Date Smoking Tobacco: Every Day Cigarettes 0.3 26.8 Started: 1998 Smokeless Tobacco: Never Alcohol Use Standard Drinks/Week Comments Not Currently 0 (1 standard drink = 0.6 oz pur e alcohol) Comments No Sex and Gender Information Value Date Recorded Sex Assigned at Not on file Legal Sex Female 8:34 AM GLAZIER ST[employer]ASS Gender Identity Not on file Sexual Orientation Not on file Occupation Industry Job Start Date Job End Date homemaker Not on file Not on file Not on file Obstetrics History Para Term AB IAB SAB Ectopic Multiple Livin g Live Births 6 4 1 3 1 0 1 0 1 5 5 Date Outcome GA Total Labor Labor/2nd/3rd Weight Sex Type Anes PTL Josephine A1 A5 Name Clin 2007 Term 38w 0d 2.58 kg (5 lb 11 oz) M Vag-S pont Livin g 2012 SAB 2017 36w 3d 7h 41m 7h 12m/0h 25m/0h 04m 2.484 kg (5 lb 7.6 oz) M Vag-S pont Local N Livin g 9 9 CISCO HAYNES Rachel Elizab eth, MD Complications:None Delivery Location:[facility] it ([facility]) 2019 33w 6d 0h 02m 0h 02m 2.11 kg (4 lb 10.4 oz) M CS-LT ranv Spinal Y Livin g 8 9 CISCO HAYNES, Giles Carreno MD Complications:Other (Comment ), Intolerance Delivery Location:[facility] Main C ampus ([facility] L AND D PROCEDURE) 2020 27w 1d 3h 47m 3h 47m 0.73 kg (1 lb 9.8 oz) F Vag-S pont None Y Livin g 8 9 GIBSO N,ONE GIRLH EATHE R Vamsi ayala, Wayne pena MD Complications:Premature Rupt ure of Membranes Delivery Location:[facility] Main C ampus ([facility] 58LD) 2020 27w 1d 0h 20m 0h 10m/0h 10m 0.91 kg (2 lb 0.1 oz) M Vag-S pont Epidur al Y Livin g 8 9 GIBSO N,TWO BOYHE ATHER Vamsi ayala, Wayne pena MD Complications:Premature Rupt ure of Membranes Delivery Location:[facility] Main C ampus ([facility] 58LD) Comments 1. 2007 - IOL for IUGR. 3. 2017 - SROM, labor. 2018 - PROM. Transferred to [facility]. LT for decreased FM, NRFHTs. 52020 - di-di twins. PPROM. Transferred to [facility]. . Last Filed Vital Signs Vital Sign Reading Time Taken Comments Blood Pressure 122/80 12/01/2024 9:32 AM CDT Pulse 90 08/19/2020 11:45 PM CDT Temperature 36.3 C (97.3 F) 08/20/2020 3:19 PM CDT Respiratory Rate 22 08/19/2020 6:49 PM CDT Oxygen Saturation 96% 08/19/2020 11:45 PM CDT Inhaled Oxygen Concentration - - Weight 65.3 kg (144 lb) 12/01/2024 9:32 AM CDT Height 170.2 cm (5' 7) 12/01/2024 9:32 AM CDT Body Mass Index 22.55 12/01/2024 9:32 AM CDT Plan of Treatment Health Maintenance Due Date Last Done Comments Depression Screening 1985 Varicella Vaccines (1 of 2 - 13+ 2-dose series) 02/27/1997 Hepatitis B Screening 02/27/2002 Pneumococcal vaccine <65 (1 of 2 - PCV) 02/27/2003 HPV Vaccines (1 - 3-dose SCD M series) 02/27/2011 Influenza Vaccine (#1) 2024 Breast Cancer Screening-Mammogram 12/01/2025 025 Cervical Cancer Screening 12/01/20252024, 12/01/2024, 04/09/2020, Additional history exists Regular Well Visit/Exam 18-64 12/01/2025 12/01/2024, 10/15/2023 DTaP/Tdap/Td Vaccine (4 - Td or Tdap) 12/05/2029 12/06/2019, 12/25/2016, 10/26/1992 Hepatitis C Screening Completed 04/09/2020 , 06/23/2019, 05/11/2017 Procedures Procedure Name Priority Date/Time Associated Diagnosis Comments HIGH RISK HPV DNA DETECTION WITH GENOTYPING Routine 12/01/2024 11:28 AM CDT Screening for malignant neoplasm of the cervix PAP AND HIGH RISK HPV, REFLEX TO GENOTYPING Routine 12/01/2024 10:55 AM CDT Screening for malignant neoplasm of the cervix SCREENING MAMMOGRAM BILATERAL W JORDAN Schedule Routine, Read Routine (OP Routine) 12/01/2024 9:09 AM CDT Encounter for screening mammogram for breast cancer HEPATITIS C ANTIBODY Routine 04/09/2020 11:48 AM GLAZIER STAINED GLASS care, subsequent , first trimester 8 weeks gestation of from Last 3 Months or Most Recently Relevant to Health Maintenance Results * High Risk HPV DNA Detection with Genotyping (Molecular component) (12/01/2024 11:28 AM CDT) HPV HR 16 Not Detected Not Detected [facility] Comment:Testing performed by : [facility], [address] [facility] [place]., [address] HPV HR 18 Not Detected Not Detected [facility] Comment:Testing performed by : [facility], [address] [facility], [place]., [address] HPV HR Non 16/18 Not Detected Not Detected [facility] Comment: Interpretive Data Nucleic acid amplification for detection of high-risk Human Papilloma virus (HPV) is performed by the Mike Jessi 6800 HPV test. This assay specifically detects HPV-16 and HPV-18 genotypes. The following HPV genotypes are detected as high-risk HPV: HPV-31, 33, 35, ,39, 45, 51, 52, 56, 58, 59, 66, and 68. This assay has been approved by the [place] Food and Drug Administration for detection of HPV in cervical specimens collected by a physician using an endocervical brush/spatula or cervical broom and placed in the ThinPrep Pap Test PreservCyt collection containers. The performance characteristics of this test have been verified by the [facility] Molecular Infectious Disease laboratory. Correlate with separately reported cytology results, as applicable. Interpretive data last revised 22 Testing performed by: [facility], [address] [place]., [address] Endocervical 12/01/2024 11:2 8 AM CDT 12/02/2024 5:08 PM CDT Narrative CERNER - 12/03/2024 12:24 AM CDT Clinical history and diagnosis->DX Z12.4 Testing type->Screening Last menstrual period (date if known)->11/13/24 Previous negative PAP?->Yes Daisy Arshad MD LAB BODY FLUIDS AND S TOOLS ORDERABLES Final Result Performing Organization Address City/State/[facility] Co de Phone Number [address] Department [place] [address] [facility] * Pap and High Risk HPV and Genotyping (Cytology Component) (12/01/2024 10:55 AM CDT) Thin prep (Pap test) 12/01/2024 10:55 AM CDT 12/01/2024 10:55 AM CDT Narrative PATHOLOGY - 12/08/2024 9:57 AM CDT [facility] Department of Pathology [address] [place] [id number] Final Report with Addendum Note to Patients: This report may contain a detailed description of human tissue sent by a health care provider to the laboratory for pathologic evaluation. The content of this report is essential for diagnosis and may provide important critical findings. This information may be unfamiliar to patients to review without a medical professional present. It is advised that the patient review this report in the presence of a health care provider who can answer questions and explain the details. Patient Name: LULU CALDERON Address: [address] [place] [address] Gender: F : 1985 (Age: 39) Service: Location: [facility] : [id number] [facility] #: [id number] Patient Type: [facility] SPECIMEN Taken: 12/01/2024 Received: 12/01/2024 Accessioned:: 12/02/2024 Reported: 12/08/2024 Physician(s): MD Daisy Smith MD Diagnosis: SOURCE OF SPECIMEN SCREENING THIN PREP IMAGED PAP w/ HPV: STATEMENT OF ADEQUACY - Satisfactory for evaluation; endocervical/transformation zone component present GENERAL CATEGORIZATION: - Negative for intraepithelial lesion or malignancy WASHINGTON Ricardo(ASCP) Report Electronically Reviewed and Signed Out By WASHINGTON Ricardo(ASCP) 12/08/2024 09:57:46Addenda: HPV Test Interpretation (Normal-Negative for High Risk HPV) HPV HR 16- Not detected HPV HR 18-Not detected HPV HR non 16/18- Not detected Interpretive Data Nucleic acid amplification for detection of high-risk Human Papilloma virus (HPV) is performed by the Mike Jessi 6800 HPV test. This assay specifically detects HPV- 16 and HPV-18 genotypes. The following HPV genotypes are detected as high-risk HPV: HPV-31, 33, 35, 39, 45, 51, 52, 56, 58, 59, 66, and 68. This assay has been approved by the [place] Food and Drug Administration for detection of HPV in cervical specimens collected by a physician using an endocervical brush/spatula or cervical broom and placed in the ThinPrep Pap Test PreservCyt collection containers. The performance characteristics of this test have been verified by the [facility] Molecular Infectious Disease laboratory. Correlate with reported cytology results, as applicable. Interpretive data last revised 22 WASHINGTON Torres(ASCP)Report Electronically Reviewed and Signed Out By WASHINGTON Torres(ASCP) 12/07/2024 08:32:26 Specimen(s) Received: A: SCREENING THIN PREP IMAGED PAP w/ HPV Clinical History: Last Menstrual Period: 11/13/24 Menstrual History: Previous Negative Pap The Pap test is a screening test used to aid in the detection of cervical cancer and its precursors. It should not be the sole means by which malignant and premalignant lesions are diagnosed. Both false negative and false positive results may occur. It also has poor sensitivity for the detection of endometrial lesions and should not be used to evaluate suspected endometrial abnormalities. For these reasons it is most important to obtain Pap tests at regular intervals. The performance characteristics of some immunohistochemical stains, fluorescence in-situ hybridization tests and immunophenotyping by flow cytometry cited in this report (if any) were determined by the Surgical Pathology Department at [facility] as part of an ongoing air quality instrument specialist program and in compliance with federally mandated regulations drawn from the Clinical Laboratory Improvement Act of 1988 (CLIA '88). Some of these tests rely on the use of analyte specific reagents and are subject to specific labeling requirements by the US Food and Drug Administration. Such diagnostic tests may only be performed in a facility that is certified by the Department of Health and Human Services as a high complexity laboratory under CLIA '88. The FDA has determined that such clearance or approval is not necessary. This test is used for clinical purposes. It should not be regarded as investigational or for research. Nevertheless, federal rules concerning the medical use of analyte specific reagents require that the following disclaimer be attached to the report: This test was developed and its performance characteristics determined by the Surgical Pathology Department [facility]. It has not been cleared or approved by the U. S. Food and Drug Administration. Daisy Arshad MD LAB CYTOLOGY ORDERABL ES Final Result PATHOLOGY [address] [place] [address] * Screening Mammogram Bilateral W Jordan (12/01/2024 9:09 AM CDT) Anatomical Region Laterality Modality Breast Bilateral Mammography Impressions 12/01/2024 1:55 PM CDT Bilateral No evidence of malignancy in either breast. OVERALL BI-RADS FINAL ASSESSMENT: 1 - Negative RECOMMENDATION: Recommend bilateral annual screening mammography. Narrative 12/01/2024 1:55 PM CDT EXAMINATION: Screening Mammogram Bilateral W Jordan: 12/01/2024 COMPARISON: This is the patient's baseline mammogram. TECHNIQUE: Mammography was performed with 2D and 3D digital breast tomosynthesis (DBT) images. CAD was utilized. BREAST PARENCHYMAL COMPOSITION: There are scattered areas of fibroglandular density. FINDINGS: Bilateral There is no suspicious mass, calcification, or architectural distortion in either breast. Daisy Arshad MD IMG MAMMO PROCEDURES Final Result * Hepatitis C antibody (04/09/2020 11:48 AM GLAZIER STAINED GLASS) Hep C Ab Nonreactive Nonreactive [facility] Comment: Interpretive Data Nonreactive: Antibodies to HCV not detected. Does NOT exclude the possibility of recent exposure to HCV. Equivocal: Equivocal for HCV antibodies. Supplemental molecular testing will be automatically performed to determine infection status in accordance with current CDC screening recommendations. Reactive: Positive for HCV antibodies. This may represent current or past HCV infection. Supplemental molecular testing will be automatically performed to determine current infection status in accordance with current CDC screening recommendations. Interpretive data was last revised on 2019. Blood specimen (specimen) 04/09/2020 11:48 AM GLAZIER STAINED GLASS 04/09/2020 10:05 PM GLAZIER STAINED GLASS Daisy Arshad MD LAB MICROBIOLOGY - [facility] ORDERABLES Final Result [facility] [address] Department [place] [address] from Last 3 Months or Most Recently Relevant to Health Maintenance Insurance [facility] Advance Directives For more information, please contact: [phone] * Full Code (Latest Code Status on File) Date Activated Date Inactivated Comments 08/11/2020 11:04 PM 08/13/2020 9:47 PM * Full Code Date Activated Date Inactivated Comments 07/21/2020 1:52 PM 08/11/2020 11:04 PM Full CPR in case of cardiopulmonary arrest * Full Code Date Activated Date Inactivated Comments 12/07/2019 5:13 AM 12/10/2019 10:54 PM * Full Code Date Activated Date Inactivated Comments 12/06/2019 10:03 AM 12/06/2019 3:53 PM Full CPR in c ase of cardiopulmonary arrest * Full Code Date Activated Date Inactivated Comments 12/09/2017 9:37 PM 12/11/2017 8:37 PM Care Teams Linoleum Tile Floor Layer Relationship Specialty Start Date End Date Andrea Handy MD [address] [place] [address] PCP - General 12/17/16
--- OUTSIDE RECORDS SUMMARY | 2025-01-14 13:54 | XMS_ITS | Encounter Summary ---
Author Organization [facility] Address [address] [place] [address] Care Team Providers Care Purification Supervisor Name Role Phone Andrea Handy MD Primary Care Provider [phone] Encounter Details Date Type Department Care Team (Late st Contact Info) Description 12/08/2024 Results Follow-Up [facility] [address] [place] [id number] Daisy Arshad MD [address] [place] [address] Pap and High Risk HPV and Genotyping (Cytology Component) Social History Tobacco Use Types Packs/Day Years Used Date Smoking Tobacco: Every Day Cigarettes 0.3 26.8 Started: 1998 Smokeless Tobacco: Never Alcohol Use Standard Drinks/Week Comments Not Currently 0 (1 standard drink = 0.6 oz pur e alcohol) Comments No Sex and Gender Information Value Date Recorded Sex Assigned at Not on file Legal Sex Female 8:34 AM OUTPATIENT CLERK Gender Identity Not on file Sexual Orientation Not on file Occupation Industry Job Start Date Job End Date homemaker Not on file Not on file Not on file documented as of this encounter Plan of Treatment Not on file documented as of this encounter Visit Diagnoses Not on filedocumented in this encounter Care Teams Purification Supervisor Relationship Specialty Start Date End Date Andrea Handy MD [address] [place] [address] PCP - General 12/17/16 documented as of this encounter
--- OUTSIDE RECORDS SUMMARY | 2025-01-14 13:56 | XMS_ITS | Data Portability ---
Author Organization [facility] Breana [facility] Address [address] [place] [address] Care Team Providers Care Skin Lifter Bacon Name Role Phone NEFTALI EMERYGEOFF Primary Care Provider Assessment No assessment recorded. Plan of Treatment Reminders Order Date Submit Date Provider Last Modified By Organization Details Last Modified Time Details Appointments None recorded. Lab rf (rheumatoid factor) + anti-ccp abs, serum 2023 024 [facility], [address] [place] [address], [address], 4 14:13:01 C reactive protein, QN, serum or plasma 2023 024 [facility], [address] [place] [address], [address], 4 14:13:07 JEIMY (antinuclea r antibodies) screen, serum 2023 024 [facility], [address] [place] [address], [address], 4 14:13:02 vitamin D, 25-hydroxy, total, serum 2023 024 [facility], [address] [place] [address], [address], 4 14:13:08 uric acid, serum or plasma 2023 024 [facility], [address] [place] [address], [address], 4 14:13:04 CMP, serum or plasma 2023 024 [facility], [address] [place] [address] 2, [place], [address], 4 14:13:04 CBC w/ auto diff 2023 024 [facility], [address] [place] [address] 2, [place], [address], 4 14:13:06 lipid panel, serum 2023 024 [facility], [address] [place] [address] 2, [place], [address], 4 14:13:03 HbA1c (hemoglobin A1c), blood 2023 024 [facility], [address] [place] [address] 2, [place], [address], 4 14:13:05 TSH, ultra-sensi tive, serum 2023 024 [facility], [address] [place] [address] 2, [place], [address], 4 14:13:06 Referral physical therapist referral 2023 024 [facility], [address], [place], [address], 4 11:06:[address] referral 2023 024 [email or web address] Deven Luna MD ([facility], Dermatology), [address] [place], [address], 4 10:40:15 Procedures None recorded. Surgeries None recorded. Imaging XR, cervical spine 2023 024 [facility] ([facility]) Scheduling, [address] [place], [address], 4 12:19:57 US, doppler, arterial 2018 019 SHADY Os ([facility]) Scheduling, [address] [place], [address], 9 16:14:11 Medication Orders tizanidine 4 mg tablet [email or web address] [id number], [address], [place], [place], [id number], 4 09:51:04 amoxicillin 500 mg tablet 2023 024 [facility], [address], [place], [place], [id number], 4 09:50:58 cetirizine 10 mg tablet 2023 024 [facility], [address], [place], [place], [id number], 4 10:45:22 fluticasone propionate 50 mcg/actuati on nasal spray,suspe nsion 2023 024 [facility], [address], [place], [place], [id number], 4 10:45:21 baclofen 20 mg tablet [email or web address], [address] [place], [address], 4 10:10:33 Patient TargetsNo targets recorded. Patient Instructions Encounter Date Encounter Id Patient Instructions Last Modified By Organization Details Last Modified Time 06/25/2017 advised to quit smoking nsuthan Not available 06/25/2017 10:59:54 f/u in 1 year nsuthan Not available 10:59:51 08/06/2018 [id number] neck spasm: exercises nsuthan Not available 08/06/2018 12:13:55 Quitting Tobacco : Care Instructions nsuthan Not available 08/06/2018 11:59:33 f/u in 2 month nsuthan Not available 0 08/06/2018 12:14:45 06/15/2023 [id number] Quitting Tobacco : Care Instructions nsuthan Not available 06/15/2023 10:45:12 fibromyalgia: care instructions nsuthan Not available 06/15/2023 10:47:51 f/u in 2 wks nsuthan Not available 02/2024 10:49:36 12/24/2023 [id number] neck spasm: exercises nsuthan Not available 12/24/2023 10:43:28 fibromyalgia: care instructions nsuthan Not available 12/24/2023 10:50:26 keep f/u nsuthan Not available 2023 10:47:25 01/19/2024 [id number] hand arthritis: exercises nsuthan Not available 01/19/2024 10:18:18 f/u in 4 monht nsuthan Not available 1 10:19:02 Reason for Referral Physical Therapist Referral for Neck pain Referring Physician: Antonio Emery, Internal Medicine, Encounter Date: 12/24/2023 [address] [employer]er Referral for H yperpigmentation of skin Referring Physician: Antonio Emery Internal Medicine, Encounter Date: 12/24/2023 Results Created Date Observation Date Name Description Value Unit Range Abnormal Flag Note LastModifiedBy Organization Detail LastModifiedTime 10/22/19 18 10/22/2017 Hepat itis C virus Ab [Pres ence] in Serum or Plasm a by Immun oassa y hepatitis C virus Ab [presence] in serum 0.06 text: <1 S/co hepat itis C antib tyler 0.06 <1 S/CO 10/22 3:12 PM CDT [facility] Not Available Not Available 06/09/2024 09:17:16 10/22/19 18 10/22/2017 Hepat itis C virus Ab [Pres ence] in Serum or Plasm a by Immun oassa y interpretati on and review of laboratory results Normal Not Available Not Available 09/2024 09:17:16 04/09/19 21 04/09/2020 pap, IG + HR HPV Pap,thinprep ,HPV negati ve Not Available Not Available 09:40:54 04/10/19 21 04/10/2020 Pap test, thinp rep, refle x hr + lr HPV, cervi dandre Pap, thin prep, HPV neg Not Available Not Available 16:07:25 06/15/19 24 06/16/2023 RHEUM ATOID ARTHR ITIS PROFI LE rheumatoid factor (rf) <10.0 Not Available [facility] ([facility]) [address] [place], [address], 06/16/2023 14:13:01 06/15/19 24 06/16/2023 RHEUM ATOID ARTHR ITIS PROFI LE anti-ccp Ab, IgG/IgA 4 units 0-19 Negat katherine <20 Weak posit katherine 20 - 39 Moder ate posit katherine 40 - 59 Stron g posit katherine >59 Not Available [facility] ([facility]) [address] [place], [address], 06/16/2023 14:13:01 06/15/19 24 06/16/2023 ANTIN UCLEA R AB MULTI PLEX RFX 9 JEIMY direct NEGATI VE negati ve Not Available [facility] ([facility]) [address] [place], [address], 06/16/2023 14:13:02 06/15/19 24 06/16/2023 LIPID PANEL cholesterol, total 146 mg/dL 100-19 9 Not Available [facility] ([facility]) [address] [place], [address], 06/16/2023 14:13:03 06/15/19 24 06/16/2023 LIPID PANEL triglyceride s 68 mg/dL 0-149 Not Available [facility] ([facility]) [address] [place], [address], 06/16/2023 14:13:03 06/15/19 24 06/16/2023 LIPID PANEL HDL cholesterol 72 mg/dL >39 Not Available [facility] ([facility]) [address] [facility], [place], [address], 06/16/2023 14:13:03 06/15/19 24 06/16/2023 LIPID PANEL VLDL cholesterol dandre 14 mg/dL 5-40 Not Available [facility] ([facility]) [address] [place], [address], 06/16/2023 14:13:03 06/15/19 24 06/16/2023 LIPID PANEL LDL chol calc ([facility]) 60 mg/dL 0-99 Not Available [facility] ([facility]) [address] [place], [address], 06/16/2023 14:13:03 06/15/19 24 06/16/2023 COMP. METAB OLIC PANEL (14) glucose 100 mg/dL 70-99 above high normal Not Available [facility] ([facility]) [address] [place], [address], 06/16/2023 14:13:03 06/15/19 24 06/16/2023 COMP. METAB OLIC PANEL (14) BUN 13 mg/dL 6-20 Not Available [facility] ([facility]) [address] [place], [address], 06/16/2023 14:13:03 06/15/19 24 06/16/2023 COMP. METAB OLIC PANEL (14) creatinine 0.69 mg/dL 0.57-1 .00 Not Available [facility] ([facility]) [address] [place], [address], 06/16/2023 14:13:03 06/15/19 24 06/16/2023 COMP. METAB OLIC PANEL (14) eGFR 113 mL/mi n/1.7 3 >59 Not Available [facility] ([facility]) [address] [facility] [place], [address], 06/16/2023 14:13:03 06/15/19 24 06/16/2023 COMP. METAB OLIC PANEL (14) BUN/creatini ne ratio 19 9-23 Not Available [facility] ([facility]) [address] [facility] [place], [address], 06/16/2023 14:13:03 06/15/19 24 06/16/2023 COMP. METAB OLIC PANEL (14) sodium 138 mmol/ L 134-14 4 Not Available [facility] ([facility]) [address] [facility], [place], [address], 06/16/2023 14:13:03 06/15/19 24 06/16/2023 COMP. METAB OLIC PANEL (14) potassium 4.3 mmol/ L 3.5-5. 2 Not Available [facility] ([facility]) [address] [facility], [place], [address], 06/16/2023 14:13:03 06/15/19 24 06/16/2023 COMP. METAB OLIC PANEL (14) chloride 105 mmol/ L 96-106 Not Available [facility] ([facility]) [address] [facility] [place], [address], 06/16/2023 14:13:03 06/15/19 24 06/16/2023 COMP. METAB OLIC PANEL (14) carbon dioxide, total 20 mmol/ L 20-29 Not Available [facility] ([facility]) [address] [facility] [place], [address], 06/16/2023 14:13:03 06/15/19 24 06/16/2023 COMP. METAB OLIC PANEL (14) calcium 9.3 mg/dL 8.7-10 .2 Not Available [facility] ([facility]) [address] [place], [address], 06/16/2023 14:13:03 06/15/19 24 06/16/2023 COMP. METAB OLIC PANEL (14) protein, total 7.1 g/dL 6.0-8. 5 Not Available [facility] ([facility]) [address] [place], [address], 06/16/2023 14:13:03 06/15/19 24 06/16/2023 COMP. METAB OLIC PANEL (14) albumin 4.7 g/dL 3.9-4. 9 Not Available [facility] ([facility]) [address] [facility] [place], [address], 06/16/2023 14:13:03 06/15/19 24 06/16/2023 COMP. METAB OLIC PANEL (14) globulin, total 2.4 g/dL 1.5-4. 5 Not Available [facility] ([facility]) [address] [facility], [place], [address], 06/16/2023 14:13:03 06/15/19 24 06/16/2023 COMP. METAB OLIC PANEL (14) A/G ratio 2.0 1.2-2. 2 Not Available [facility] ([facility]) [address] [facility] [place], [address], 06/16/2023 14:13:03 06/15/19 24 06/16/2023 COMP. METAB OLIC PANEL (14) bilirubin, total 0.4 mg/dL 0.0-1. 2 Not Available [facility] ([facility]) [address] [facility] [place], [address], 06/16/2023 14:13:03 06/15/19 24 06/16/2023 COMP. METAB OLIC PANEL (14) alkaline phosphatase 63 IU/L 44-121 Not Available [facility] ([facility]) [address] [facility] [place], [address], 06/16/2023 14:13:03 06/15/19 24 06/16/2023 COMP. METAB OLIC PANEL (14) AST (SGOT) 13 IU/L 0-40 Not Available [facility] ([facility]) [address] [facility], [place], [address], 06/16/2023 14:13:03 06/15/19 24 06/16/2023 COMP. METAB OLIC PANEL (14) ALT (SGPT) 14 IU/L 0-32 Not Available [facility] ([facility]) [address] [facility], [place], [address], 06/16/2023 14:13:03 06/15/19 24 06/16/2023 URIC ACID uric acid 2.9 mg/dL 2.6-6. 2 Thera peuti c targe t for gout patie nts: <6.0 Not Available [facility] ([facility]) [address] [facility], [place], [address], 06/16/2023 14:13:04 06/15/19 24 06/16/2023 HEMOG LOBIN A1C hemoglobin A1C 5.6 % 4.8-5. 6 Predi abete s: 5.7 - 6.4 Diabe malena: >6.4 Glyce marga contr ol for adult s with diabe malena: <7.0 Not Available [facility] ([facility]) [address] [facility], [place], [address], 06/16/2023 14:13:05 06/15/19 24 06/16/2023 TSH TSH 1.160 uIU/m L 0.450- 4.500 Not Available [facility] ([facility]) [address] [place], [address], 06/16/2023 14:13:06 06/15/19 24 06/16/2023 CBC WITH DIFFE RENTI AL/PL ATELE T WBC 6.7 x10e3 /uL 3.4-10 .8 Not Available [facility] ([facility]) [address] [facility], [place], [address], 06/16/2023 14:13:06 06/15/19 24 06/16/2023 CBC WITH DIFFE RENTI AL/PL ATELE T RBC 5.08 x10e6 /uL 3.77-5 .28 Not Available [facility] ([facility]) [address] [facility], [place], [address], 06/16/2023 14:13:06 06/15/19 24 06/16/2023 CBC WITH DIFFE RENTI AL/PL ATELE T hemoglobin 14.6 g/dL 11.1-1 5.9 Not Available [facility] ([facility]) [address] [facility], [place], [address], 06/16/2023 14:13:06 06/15/19 24 06/16/2023 CBC WITH DIFFE RENTI AL/PL ATELE T hematocrit 44.2 % 34.0-4 6.6 Not Available [facility] ([facility]) [address] [facility], [place], [address], 06/16/2023 14:13:06 06/15/19 24 06/16/2023 CBC WITH DIFFE RENTI AL/PL ATELE T MCV 87 fL 79-97 Not Available [facility] ([facility]) [address] [facility], [place], [address], 06/16/2023 14:13:06 06/15/19 24 06/16/2023 CBC WITH DIFFE RENTI AL/PL ATELE T MCH 28.7 pg 26.6-3 3.0 Not Available [facility] ([facility]) [address] [place], [address], 06/16/2023 14:13:06 06/15/19 24 06/16/2023 CBC WITH DIFFE RENTI AL/PL ATELE T MCHC 33.0 g/dL 31.5-3 5.7 Not Available [facility] ([facility]) [address], [place], [address], 06/16/2023 14:13:06 06/15/19 24 06/16/2023 CBC WITH DIFFE RENTI AL/PL ATELE T RDW 13.0 % 11.7-1 5.4 Not Available [facility] ([facility]) [address] [facility], [place], [address], 06/16/2023 14:13:06 06/15/19 24 06/16/2023 CBC WITH DIFFE RENTI AL/PL ATELE T platelets 116 x10e3 /uL 150-45 0 below low normal Not Available [facility] ([facility]) [address] [facility], [place], [address], 06/16/2023 14:13:06 06/15/19 24 06/16/2023 CBC WITH DIFFE RENTI AL/PL ATELE T neutrophils 60 % notest ab. Not Available [facility] ([facility]) [address] [facility], [place], [address], 06/16/2023 14:13:06 06/15/19 24 06/16/2023 CBC WITH DIFFE RENTI AL/PL ATELE T lymphs 29 % notest ab. Not Available [facility] ([facility]) [address] [facility], [place], [address], 06/16/2023 14:13:06 06/15/19 24 06/16/2023 CBC WITH DIFFE RENTI AL/PL ATELE T monocytes 8 % notest ab. Not Available [facility] ([facility]) [address] [facility], [place], [address], 06/16/2023 14:13:06 06/15/19 24 06/16/2023 CBC WITH DIFFE RENTI AL/PL ATELE T eos 2 % notest ab. Not Available [facility] ([facility]) [address] [facility], [place], [address], 06/16/2023 14:13:06 06/15/19 24 06/16/2023 CBC WITH DIFFE RENTI AL/PL ATELE T basos 1 % notest ab. Not Available [facility] ([facility]) [address] [facility], [place], [address], 06/16/2023 14:13:06 06/15/19 24 06/16/2023 CBC WITH DIFFE RENTI AL/PL ATELE T neutrophils (absolute) 4.0 x10e3 /uL 1.4-7. 0 Not Available [facility] ([facility]) [address] [facility], [place], [address], 06/16/2023 14:13:06 06/15/19 24 06/16/2023 CBC WITH DIFFE RENTI AL/PL ATELE T lymphs (absolute) 1.9 x10e3 /uL 0.7-3. 1 Not Available [facility] ([facility]) [address] [facility], [place], [address], 06/16/2023 14:13:06 06/15/19 24 06/16/2023 CBC WITH DIFFE RENTI AL/PL ATELE T monocytes(ab solute) 0.5 x10e3 /uL 0.1-0. 9 Not Available [facility] ([facility]) [address] [facility], [place], [address], 06/16/2023 14:13:06 06/15/19 24 06/16/2023 CBC WITH DIFFE RENTI AL/PL ATELE T eos (absolute) 0.1 x10e3 /uL 0.0-0. 4 Not Available [facility] ([facility]) [address] [facility], [place], [address], 06/16/2023 14:13:06 06/15/19 24 06/16/2023 CBC WITH DIFFE RENTI AL/PL ATELE T baso (absolute) 0.1 x10e3 /uL 0.0-0. 2 Not Available [facility] ([facility]) [address] [facility], [place], [address], 06/16/2023 14:13:06 06/15/19 24 06/16/2023 CBC WITH DIFFE RENTI AL/PL ATELE T immature granulocytes 0 % notest ab. Not Available [facility] ([facility]) [address] [facility], [place], [address], 06/16/2023 14:13:06 06/15/19 24 06/16/2023 CBC WITH DIFFE RENTI AL/PL ATELE T immature grans (abs) 0.0 x10e3 /uL 0.0-0. 1 Not Available [facility] ([facility]) [address] [facility], [place], [address], 06/16/2023 14:13:06 06/15/19 24 06/16/2023 C-VENITA CTIVE PROTE IN, QUANT C-reactive protein, quant <1 mg/L 0-10 Not Available [facility] ([facility]) [address] [facility], [place], [address], 06/16/2023 14:13:07 06/15/19 24 06/16/2023 VITAM IN D, 25-HY DROXY vitamin D, 25-hydroxy 28.4 NG/mL 30.0-1 00.0 below low normal Vitam in D defic iency has been defin ed by the Insti tute of Medic ine and an Endoc rine Socie ty pract ice guide line as a level of serum 25-OH vitam in D less than 20 ng/mL (1,2) . The Endoc rine Socie ty went on to furth er defin e vitam in D insuf ficie ncy as a level betwe en 21 and 29 ng/mL (2). 1. IOM (Inst itute of Medic ine). 2010. Dieta ry refer ence intak es for calci um and D. Anthony jerez [place]: [facility] . 2. Court perkins [place], Zeus pena [place], Didi off-F susy i CHEUNG, et al. Evalu ation , treat ment, and preve ntion of vitam in D defic iency : an Endoc rine Socie ty clini dandre pract ice guide line. JCEM. 2010; 96(7) :1911 -30. Not Available [facility] ([facility]) [address] [facility], [place], [address], 06/16/2023 14:13:08 08/23/19 18 08/21/2017 [place], obste tric No observ ation record ed. [email or web address] [facility] (Radiology) [address] [place], [address], 08/24/2017 11:40:41 10/31/19 18 10/29/2017 US, obste tric No observ ation record ed. [email or web address] Not Available 2017 13:09:13 11/25/19 18 11/23/2017 US, renal No observ ation record ed. [email or web address] Not Available 2017 14:45:52 12/04/19 18 05/23/2017 US, obste tric No observ ation record ed. Not Available 2017 16:45:20 12/04/19 18 10/29/2017 US, obste tric No observ ation record ed. [email or web address] Not Available 2017 16:45:06 09/07/19 19 09/06/2018 US, doppl er, arter ial No observ ation record ed. [email or web address] Not Available 2018 16:44:50 04/29/19 24 04/29/2023 XR, kidne y + urete r + bladd er No observ ation record ed. [email or web address] [address] [place], [address], 04/30/2023 14:12:24 01/14/20 24 01/12/2024 XR, cervi dandre spine No observ ation record ed. [email or web address] [facility] [address] [place], [address], 01/19/2024 13:26:08 Result Notes None recorded. 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 Procedures Surgical History Date Name Laterality Status Provider Name and Address Organization Details Recorded Time Other completed Stephany Cerna MA [facility] 02/12/2015 09:42:21 Imaging Results None recorded. Procedure Notes None recorded. Medical Equipment None Reported. Allergies Allergen ID Allergen Name Allergen Category Reaction Reaction Severity Criticality Documentation Date Start Date Code Code System Note Provider Name and Address Organization Details Recorded Time 050793 cephalexi n medicatio n hives Not available Not available 06/15/2023 2231 RxNorm Kim ZAYNAB Riggs null, [place] - [facility] 4 10:10:04 Medications Name Sig Start Date Stop Date Status Note LastModified by Organization Details LastModified Time amoxicillin 500 mg capsule TAKE ONE CAPSULE BY MOUTH EVERY 8 HOURS 06/14 completed Not Available Not Available Not Available naproxen 375 mg tablet Take 1 tablet twice a day by oral route for 15 days. 12/25 completed Not Available Not Available Not Available cetirizine 10 mg tablet TAKE 1 TABLET BY MOUTH EVERY DAY active Not Available Not Available No t Available azithromyci n 250 mg tablet 08/06 completed Not Available Not Available Not Available tizanidine 4 mg tablet TAKE 1 TABLET BY MOUTH TWICE DAILY 2023 active Not Available Not Available Not Avai lable benzonatate 200 mg capsule 06/25 completed Not Available Not Available Not Available clarithromy scott 500 mg tablet 06/25 completed Not Available Not Available Not Available hydrocodone 5 mg-acetamin ophen 325 mg tablet TAKE 1 TABLET BY MOUTH EVERY 4 HOURS NEEDED FOR MODERATE OR MORE SEVERE PAIN. MAX DAILY DOSE OF 6 TABLETS 06/14 completed Not Available Not Available Not Available prednisone 20 mg tablet 06/25 completed Not Available Not Available Not Available prednisone 5 mg tablet 08/06 completed Not Available Not Available Not Available metronidazo le 500 mg tablet 08/06 completed Not Available Not Available Not Available acetaminoph en 300 mg-codeine 30 mg tablet TAKE 1 TABLET BY MOUTH EVERY 4 TO 6 HOURS 06/14 completed Not Available Not Available Not Available triamcinolo ne acetonide 0.1 % topical cream 08/06 completed Not Available Not Available Not Available butalbital- acetaminoph en-caffeine 50 mg-325 mg-40 mg tablet 06/25 completed Not Available Not Available Not Available amoxicillin 500 mg tablet TAKE 1 TABLET BY MOUTH EVERY 8 HOURS FOR 7 DAYS 01/18 completed Not Available Not Available Not Available baclofen 20 mg tablet Take 1 tablet twice a day by oral route. 06/14 completed Not Available Not Available Not Available amoxicillin 875 mg tablet TAKE 1 TABLET BY MOUTH EVERY 12 HOURS 06/14 completed Not Available Not Available Not Available doxycycline monohydrate 100 mg capsule active Not Available Not Available Not Available ranitidine 150 mg tablet TAKE 1 TABLET(S) TWICE A DAY BY ORAL ROUTE. 12/25 completed Not Available Not Available Not Available polyethylen e glycol 3350 17 gram/dose oral powder MIX AND TAKE 17 GRAMS BY MOUTH ONCE DIALY NEEDED FOR CONSTIPAT ION 06/14 completed Not Available Not Available Not Available fluticasone propionate 50 mcg/actuati on nasal spray,suspe nsion USE 2 SPRAYS NASALLY EVERY DAY active Not Available Not Available No t Available medroxyprog esterone 150 mg/mL intramuscul ar suspension 01/18 completed Not Available Not Available Not Available amoxicillin 875 mg-potassiu m clavulanate 125 mg tablet 06/25 completed Not Available Not Available Not Available Ventolin HFA 90 mcg/actuati on aerosol inhaler TAKE 2 PUFFS BY INHALATIO N EVERY 4 HOURS NEEDED FOR WHEEZING OR COUGH. 06/14 completed Not Available Not Available Not Available nitrofurant oin monohydrate /macrocryst als 100 mg capsule 08/06 completed Not Available Not Available Not Available 28 mg iron-800 mcg tablet 08/06 completed Not Available Not Available Not Available Vitals Date Recorded Body height Body mass index (BMI) Body weight Heart rate Respiratory rate Body temperature Oxygen saturation Oxygen saturation in Arterial blood by Pulse oximetry Systolic And Diastolic Provider Name and Address Organization Details Last Updated DateTime 4 170.18 cm 23 kg/m2 95270.7 2 g 95 /min 14 /min 97.3 [degF] 98 % 98 % 118/77 mm[Hg] Kim Riggs MA [facility] 4 10:19:45 Date Recorded Body height Body mass index (BMI) Body weight Heart rate Respiratory rate Body temperature Oxygen saturation Oxygen saturation in Arterial blood by Pulse oximetry Systolic And Diastolic Provider Name and Address Organization Details Last Updated DateTime 8 170.18 cm 19.8 kg/m2 67758.3 6 g 95 /min 14 /min 98 [degF] 100 % 100 % 98/68 mm[Hg] Kim Riggs [facility] 8 10:39:55 Date Recorded Body height Body mass index (BMI) Body weight Heart rate Respiratory rate Body temperature Oxygen saturation Oxygen saturation in Arterial blood by Pulse oximetry Systolic And Diastolic Provider Name and Address Organization Details Last Updated DateTime 9 170.18 cm 21.2 kg/m2 92430.3 3 g 108 /min 16 /min 98.2 [degF] 99 % 99 % 102/58 mm[Hg] Katy romero MA [facility] 9 11:46:57 Date Recorded Body height Body mass index (BMI) Body weight Heart rate Respiratory rate Body temperature Oxygen saturation Oxygen saturation in Arterial blood by Pulse oximetry Systolic And Diastolic Provider Name and Address Organization Details Last Updated DateTime 4 170.18 cm 22.5 kg/m2 95367.5 1 g 100 /min 14 /min 98 [degF] 99 % 99 % 116/78 mm[Hg] Kim Riggs MA [facility] 4 10:29:46 Date Recorded Body height Body mass index (BMI) Body weight Heart rate Respiratory rate Body temperature Oxygen saturation Oxygen saturation in Arterial blood by Pulse oximetry Systolic And Diastolic Provider Name and Address Organization Details Last Updated DateTime 4 170.18 cm 22.5 kg/m2 02781.5 8 g 112 /min 14 /min 97.3 [degF] 97 % 97 % 129/84 mm[Hg] Kim Riggs MA [facility] 4 09:58:17 Social History Question Answer Notes LastModified by Organizat ion Details LastModified Time Tobacco Smoking Status Current Every Day [facility]12[facility]2015 09:42:20 Do You Have An Advance Directive? No Information not available 06/15/2023 Are You Blind Or Do You Have Difficulty Seeing? Yes Glasses Information not available 06/15/2023 What Is Your Level Of Caffeine Consumption? Moderate Mod - Heavy Information not available 12/24/2023 How Much Tobacco Do You Chew? None Information not available 12/25/2016 In The 14 Days Before Symptom Onset, Have You Had Close Contact With [facility] While That Case Was Ill? No Information not available 06/15/2023 In The 14 Days Before Symptom Onset, Have You Had Close Contact With A Person Who Is Under Investigation For COVID-19 While That Person Was Ill? No Information not available 06/15/2023 Have You Been To An Area Known To Be High Risk For COVID-19? No Information not available 06/15/2023 Are You Deaf Or Do You Have Serious Difficulty Hearing? No Information not available 12/24/2023 What Type Of Diet Are You Following? REGULAR Information not available 12/25/2016 Which Illicit Or Recreational Drugs Have You Used? Denies Information not available 12/25/2016 Education 12 Some College Information not available 12/25/2016 What Is The Highest Grade Or Level Of School You Have Completed Or The Highest Degree You Have Received? [id number] Information not available 06/15/2023 Are There Any Guns Present In Your Home? No Information not available 06/15/2023 Marital Status Single Informatio n not available 12/25/2016 What Was The Date Of Your Most Recent Tobacco Screening? 01/19/2024 Information not available 01/19/2024 What Is Your Relationship Status? Single Information not available 06/15/2023 Do You Use Your Seat Belt Or Car Seat Routinely? Yes Information not available 06/15/2023 Do You Have Smoke And Carbon Monoxide Detectors In Your Home? Yes Information not available 06/15/2023 At What Age Did You Start Smoking Tobacco? 16 Information not available 06/15/2023 How Much Tobacco Do You Smoke? 0.5 PPD A Little Less Information not available 12/24/2023 General Stress Level Low Information not available 06/25/2017 Do You Use Sunscreen Routinely? No Information not available 06/15/2023 Has Tobacco Cessation Counseling Been Provided? Yes Information not available 06/15/2023 On What Date Was Tobacco Cessation Counseling Provided? 01/19/2024 Information not available 01/19/2024 Sex: Female Functional Status Question Answer Note LastModified by Organizat ion Details LastModified Time Do you use any illicit or recreational drugs? No Information not available 06/15/2023 Do you or have you ever used any other forms of tobacco or nicotine? No Information not available 06/15/2023 What is your level of alcohol consumption? Occasional cgrandberry Information not available 02/12/2015 Are you currently employed? No Information not available 06/15/2023 Are you able to care for yourself independently? Yes Information not available 12/24/2023 What is your occupation? unemployed [employer] Information not available 08/06/2018 What is your exercise level? None walk Information not available 01/19/2024 Mental Status Question Answer Note LastModified by Organization D etails LastModified Time Do you feel stressed (tense, restless, nervous, or anxious, or unable to sleep at night)? [id number] Information not available 06/15/2023 Family History Relationship Description Onset Age of this Age Resolved Age Notes LastModified by Organization Details LastModified Time Father Diabetes mellitus cgrandberry Not available 12/2014 09:42:21 Father Essential hypertension cgrandberry Not available 1 04/14/2014 09:42:21 Father Hypercholest erolemia Not available 2016 10:16:23 Brother Attention deficit hyperactivit y disorder cgrandberry Not available 12/2014 09:42:21 Mother Hypercholest erolemia Not available 2016 10:16:23 Son Autism spectrum disorder Not available 2023 10:14:03 Son Autism spectrum disorder Not available 2023 10:14:03 Medical History Condition Response Coronary Artery Disease N Other N High Blood Pressure N Atrial Fibrillation N Kidney or Bladder Problems Y Thyroid Problems N GI Problems Y Depression N COPD N Blood Clots N Skin Problems N Anemia Y Heart Attack (AK) N Anxiety Disorder Y Diabetes N Muscle, Joint, or Bone Problems N Seizures/Epilepsy N Acid Reflux (GERD) Y Cancer N Stroke N Asthma N Allergies Y High Cholesterol N Hepatitis N Liver Disease N Headaches Y Heart Failure N Osteoporosis N Gynecological History Statement/Question Response Menses Monthly Y Duration of Flow (days) 6 Date of LMP 05/27/2023 Obstetrics History GPAL:G 0 P 0 0 0 5 Type Value Living 5 Immunizations Vaccine Type Date Status Note Provider Suman raya and Address Organization Details Recorded Time Tdap 12/25/2016 completed Not Available [facility] 04[facility] 02:40:56 Past Encounters Encounter ID Performer Location Encounter Start Date Encounter Closed Date Diagnosis/Indication Diagnosis SNOMED-CT Code Diagnosis ICD10 Code Diagnosis IMO Codes Diagnosis Note [id number] MD Craig Armstrong (Adult Med) [address] [place] [address] 02/12/2015 09:18:08 02/12/2015 11:01:12 Right upper quadrant pain 016688173 R10.11 CT abdomen showed Cholelithi asis. Refer to surgeon. Kidney stone 88227922 N2 0.0 B/L nephrolith iasis. CT abdomen showed left renal angiomyoli shaji. Patient used to follow who etired last year. Refer to Urologist. Gastroesop hageal reflux disease 083853434 R12 RUq pain improving with Ranitidine . Life style modificati on explained. Refill Ranitidine . Tobacco user 428799473 Z 72.0 Advised smoking cessation. 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 with h/o kidney stone in the pastpt was seeing urologist in the pastneeds referral to see one Upper resp iratory infection 65139637 J06.9 pt to complete antibiotic Adult heal th examination 982059440 Z00.01 healthy diet and exercise discussed with pt Administra tion of diphtheria, pertussis, and tetanus vaccine 326790008 Z23 [id number] MD Craig Cole (Adult Med) [address] [place] [address] 06/25/2017 10:31:20 06/26/2017 09:06:45 Tobacco user 522739987 Z72.0 Angiomyoli shaji of kidney 855106101 D17.71 with h/o kidney stone in the pastpt is seeing urologist in the pastUs 12/21 -stable 33580954 Z33.1 pt to f/u with ObAdvised pt to quit smoking -risks of smoking during discussed with pt [id number] MD Alma Colehalto (Adult Med) [address] [place] [address] 08/06/2018 11:23:14 08/09/2018 09:32:30 Idiopathic thrombocytopenic purpura 22171063 D69.3 pt is seeing hematologi st Smoker 44940817 F17.200 Pain in lower limb 77743 006 M79.604 M79.605 check arterial dopplerpt to stop smoking Neck pain 59675373 M54.2 due to trapezius spasmheat therapy /exercises consider pT if problem continues Adult [facility] th examination 614085502 Z00.01 healthy diet and exercise discussed with pt [id number] MD Alma Colehalto (Adult Med) [address] [place] [address] 06/15/2023 09:51:36 06/19/2023 12:37:18 Adult health examination 315606990 Z00.00 healthy diet and exercise discussed with pt Pain in lower limb 22268 006 M79.604 M79.605 -arterial doppler in the past -negpt to stop smoking Idiopathic thrombocytopenic purpura 51262434 D69.3 -stable -pt is seeing hematologi st Allergic rhinitis 636756 04 J30.9 Pain of mu ltiple joints 32353432 M25.50 - labs to r/o inflammato ry arthritis ( f/h of RA)possibl y fibromyalg ia Smoker 38101221 F17.603 [id number] MD Alma Colehalto (Adult Med) [address] [place] [address] 12/24/2023 09:57:57 12/28/2023 14:56:05 Post-acute COVID-19 4404018714 U09.9 with bronchitis /sinusitis Neck pain 84610010 M54.2 due to trapezius spasmheat therapy /exercises pt to go for PT if problem continues Acute sinusitis 61965174 J01.90 -salt water gargle for sorethroat good hydrationp t took amoxicilli n without any side effect in the past Hyperpigme ntation of skin 21997026 L81.9 around mouth and nose- pt wants to see derm [id number] Andrea Emery MD [facility] (Adult Med) [address] [place] [address] 01/19/2024 09:40:06 01/25/2024 11:08:04 Neck pain 54391323 M54.2 due to trapezius spasmheat therapy /exercises pt is going to start PT tomorrow Idiopathic thrombocytopenic purpura 82901084 D69.3 -stable -pt is seeing hematologi st Pain of bi lateral hands 1817136770 6892619 M79.641 M79.642 -exercise /ok to take otc tylenollab s for inflammato ry arthritis -neg Health Concerns Section Related Observation LastModified by Organization Detai ls LastModified Time None Recorded Concern Status LastModified by Organization Details LastModified Time None Recorded Advance Directives Directive N: Payers Insurance Date Sequence Insurance Name Policy Number Policy Bowman Covered Member ID Bowman Member ID Guarantor Name 01/25/2024 1 [facility] (MEDICAID HMO) [id number] Kristi Calderon [id number] Kristi Calderon Notes Date Note Type Note Provider Name and Address Organization Details Recorded Time 8 text/htm l pt is here for f/u . pt is currently . Pt continues to smoke , has cut down.pt also started seeing urologist for small tumor in her kidney, denied any urinary symptoms. Andrea Emery MD Attn: Accounting,[address] [facility], [place], [address], [facility] 06/25/2017 11:00:56 9 text/htm l Lower LegReported by PatientHPIFor location, patient reportsbilateral (r>l). For quality, patient reportsachingandfrequent. For severity, patient reportsmoderate. For timing, patient reportsintermittent episodes lasting:. For associated symptoms, patient reportsno weakness,no numbness,no tingling,no swelling, andno redness. Neck PainReported by PatientHPIFor pain, patient reportsachingandworse with movement. For trauma, patient reportsno. For neurological complaints, patient reportsnone. For pain duration, patient reports6 months.pt had baby 8 month ago , has been carrying the baby /stroller/ car seat and sleeping on side as well. pt is here for annual f/u . pt found to have low platelet during and seeing deputy commonwealth's attorney . Pt continues to smoke , has cut down.pt also was seen by urologist for small tumor in her kidney, denied any urinary symptoms. Andrea Emery MD Attn: Accounting,[address] [facility], [place], [address], [facility] 08/06/2018 15:43:48 4 text/htm l Lower LegReported by PatientHPIFor location, patient reportsbilateral. For quality, patient reportsachingandfrequent. For severity, patient reportsmoderate. For timing, patient reportschronic. For context, patient reportsoveruse. For associated symptoms, patient reportsno weakness,no numbness,no tingling,no swelling, andno redness. For prior imaging, patient reportsultrasound (arterial doppler -ok). For working, patient reportsno.pt is also complaining of aches and pain of joints pt is here to re-establishpt found to have low platelet during and seeing deputy commonwealth's attorney . Pt continues to smoke , has cut down.pt also was seen by urologist for small tumor in her kidney, denied any urinary symptoms. Andrea Emery MD Attn: Accounting,[address] [facility], [place], [address], [facility] 06/15/2023 14:18:47 4 text/htm l Neck PainReported by PatientHPIFor pain, patient reportsachingandworse with movement. For trauma, patient reportsno. For neurological complaints, patient reportsnone. For pain duration, patient reports6 months. Upper Respiratory SymptomsReported by PatientUpper Respiratory SymptomsFor quality, patient reportscongestedandhurts to swallow. For context, patient reportssick contact (with kids and had covid). For associated symptoms, patient reportsyellow sputumbut reportsno shortness of breath,no wheezing, andno fever. For location, patient reportsheadandthroat. For duration, patient reportssymptoms lasting over 2 weeks. pt also wants to see derm for dark pigmentation around her mouth and nose which worsend after her and making her less self-confidence Andrea Emery MD Attn: Accounting,[address] [facility], [place], [address], [facility] 12/25/2023 11:50:49 4 text/htm l Neck PainReported by PatientHPIFor pain, patient reportsachingandworse with movement. For trauma, patient reportsno. For neurological complaints, patient reportsnone. For pain duration, patient reports6 months. pt sees deputy commonwealth's attorney for ITP / pt also complains of hand especially thumb area /pt uses her hand a lot at work Andrea Emery MD Attn: Accounting,[address] [facility], [place], [address], [facility] 01/19/2024 13:29:55 OBGyn Episode No OBEpisode recorded.
--- NOTE | 2025-01-14 13:58 | ED.URI ---
HPI - URI/Sore Throat General Chief Complaint: Upper Respiratory Infection Stated Complaint: Fever/Chest Congestion/Ear Pain Time Seen by Provider: 01/14/25 13:58 Source: patient Mode of arrival: ambulatory Limitations: no limitations History of Present Illness HPI Narrative: Kristi is a 39-year-old female patient presenting to the clinic today with complaints of feeling fever, body aches, postnasal drip, sore throat, chest congestion, and left ear pain x2 days. She reports has a productive cough with some green phlegm. Feels short of breath at times. Is a smoker. Denies any chest pain. Rates pain 5/10. Took an OTC daily allergy medication Related Data Home Medications ?Medication ?Instructions ?Recorded ?Confirmed ?Last Taken ?Type Allergy Medication 01/14/25 Unknown History Allergies Allergy/AdvReac Type Severity Reaction Status Date / Time ciprofloxacin Allergy Intermediate Hives / Verified 01/14/25 14:06 Red Face NSAIDS (Non-Steroidal AdvReac Unknown Unknown Verified 01/14/25 14:06 Anti-Inflamma Review of Systems Review of Systems: Pertinent positives per HPI. Patient denies any rash, headache, visual changes, dizziness, chest pain, palpitations, nausea, vomiting, diarrhea, constipation, abdominal pain, or any urinary issues. PMFSH Comments At the time of my signature, I reviewed and agree with the nursing past medical, surgical, social, and family history. There is no relevant family history pertinent to the patient complaint. Exam Narrative: General: Well-developed, well nourished, in no apparent distress Head: Normocephalic, atraumatic Eyes: Pupils equally round and reactive to light bilaterally, EOM intact, sclera and conjunctive clear, no discharge, lids normal Ears: TMs intact and clear, ear canals clear, no drainage, grossly hearing normal. Nose: Nares patent, clear nasal discharge, mild inflammation, no sinus tenderness. Mouth: Oral pharynx red without lesions or masses, good dentition, MMM. Tonsils surgically absent, Postnasal drip Neck: Supple, trachea midline, no enlargement of anterior or posterior cervical nodes, no thyroid masses or goiter palpable. Cardio: Regular rate and rhythm, s1 and s2 normal, no murmur appreciated. Resp: Faint expiratory wheezing, no rhonchi, rales,or rubs Course Course Emergency Course: Portions of this record may have been created with voice recognition software. Level of Care: Express Care Visit Vital Signs Vital signs: Vital Signs Temperature 36.9 C 01/14/25 14:01 Pulse Rate 99 01/14/25 14:01 Respiratory Rate 16 01/14/25 14:01 Blood Pressure 134/73 01/14/25 14:01 Pulse Oximetry 99 01/14/25 14:01 Oxygen Delivery Room Air 01/14/25 14:01 Temperature 36.9 C 01/14/25 14:01 Pulse Rate 99 01/14/25 14:01 Respiratory Rate 16 01/14/25 14:01 Blood Pressure 134/73 01/14/25 14:01 Pulse Oximetry 99 01/14/25 14:01 Oxygen Delivery Room Air 01/14/25 14:01 Vital signs reviewed MDM - URI/Sore Throat MDM Narrative Medical decision making narrative: At the time of visit patient is resting comfortably on the exam table. Patient appears to be nontoxic. Complaints of feeling fever, body aches, postnasal drip, sore throat, chest congestion, and left ear pain x2 days. She reports has a productive cough with some green phlegm. Feels short of breath at times. Is a smoker. Denies any chest pain. Rates pain 5/10. Took an OTC daily allergy medication. On exam patient has clear nasal discharge, oral pharynx red with post nasal drip, tonsils surgically absent, faint expiratory wheezing, heart rate regular rate and rhythm. Labs: Strep, COVID, and influenza testing were performed and were negative in the clinic today. We will send strep for culture Plan: I suspect patient has URI/bronchitis. Prescription for albuterol inhaler was sent to the pharmacy. Supportive measures were discussed with the patient and they voiced understanding discharge instructions and agrees to treatment plan. Return precautions reviewed Differential Diagnosis Differential diagnosis: Likely upper respiratory infection, otitis media, sinusitis, viral infection, bronchitis, influenza, pharyngitis and other (COVID) Lab Data Labs: Lab Results 01/14/25 Range/Units 14:22 POC Influenza A Ag Negative (Negative) POC Influenza B Ag Negative (Negative) POC SARS CoV-2 Ag Negative (Negative) POC Grp A Strep Screen Negative (Negative) Discharge Plan Discharge Clinical Impression: Bronchitis Upper respiratory infection Qualifiers: URI type: unspecified URI Qualified Code(s): J06.9 - Acute upper respiratory infection, unspecified Patient Disposition: Home Condition: Stable Instructions: Antibiotic Form, Acute Bronchitis (ED), Cold Symptoms (ED) Additional Instructions: Take prescription medications only as prescribed-albuterol inhaler as needed for cough, shortness of breath, wheeze. May take DayQuil/NyQuil for cold/flu symptoms. Increase fluids and stay well hydrated May take Tylenol or motrin as directed on bottle for pain/fever May use Flonase 1 spray in each nare daily May take OTC antihistamines such as Zyrtec or Claritin daily as directed on bottle May apply Vicks vapor rub to chest to open sinuses Sinus rinses for congestion Cepacol spray, cough drops, throat lozenges, warm tea with honey/lemon, gargle salt water to soothe throat BRAT diet for diarrhea Clear liquids x 24 hours then advance as tolerated for nausea/vomiting Go to the ED if you develop a worsening in your condition- high fever not controlled by Tylenol or Motrin, dehydration, weakness, lethargy, shortness of breath, or chest pain. Follow up with your PCP in 3-5 days if symptoms persist. Patient Language: Guamanian Prescriptions: New albuterol sulfate 90 mcg/actuation HFA aerosol inhaler 2 puff inhalation Q4-6H PRN (Reason: shortness of breath or wheezing) 30 Days Qty: 8.5 0RF No Action Allergy Medication Follow-up/Referrals: PHYSICIAN,CLINICAL IMPLEMENTATION SPECIALIST [Primary Care Provider, Internal Medicine] Stand Alone Forms: Work/School Release IP Time of Disposition: 14:19 Quality NIHSS Nursing Documentation ED NIHSS nursing documentation: reviewed/agree
[2025-01-14 14:01] VITALS: BP 134/73; PULSE 99; RESP 16; TEMP 36.9; O2SAT 99
[2025-01-14 14:25] LABS: EDCOVIDSCREEN Negative (Negative); EDINFLUASCREEN Negative (Negative); EDINFLUBSCREEN Negative (Negative); EDSTREPNEGPOS1 Negative (Negative)
== END 2025-01-14 14:40 | disposition home or self-care (01) ==
PROVIDERS: Emergency Provider Nurse Practitioner Family
DX: J40 Bronchitis, not specified as acute or chronic (principal); J06.9 Acute upper respiratory infection, unspecified; Z20.822 Contact with and (suspected) exposure to COVID-19; F17.200 Nicotine dependence, unspecified, uncomplicated; D69.3 Immune thrombocytopenic purpura
CPT/HCPCS: 87081; 87426; 87804; 87880; 99213; G0463